=== PATIENT | female | born 1970 | race African-American/Black ===

== ENCOUNTER 2016-11-21 05:06 | Emergency (ER) | payer OTHER ==
--- NOTE | 2016-11-21 08:06 | ER Document Report ---
[id number] SEIZURE Mode of Arrival: Ambulatory Information source: Patient Notes: 46-year-old female history seizure disorder who is been on Depakote and Keppra presents with complaints of a seizure. Patient notes after a seizure she went to work and told her with that she had a seizure and a demanding a work note Patient notes this is a normal seizure for denies any other concerns denies any neurological deficits at all TRAVEL OUTSIDE OF THE [place] IN LAST 30 DAYS: No - HPI Onset: Just prior to arrival Onset/Duration: Sudden Quality of pain: No pain Severity: Mild Pain Level: Denies Associated symptoms: None Exacerbated by: Denies Relieved by: Denies Similar symptoms previously: No Recently seen / treated by doctor: No - Related Data Allergies/Adverse Reactions: venom-wasp [Wasp Venom] Allergy (Severe, Verified 07/14/16 14:11) SWELLING Bees Allergy (Severe, Uncoded 11/05/15 06:13) swelling Past Medical History - Social History Smoking Status: Never Smoker Chew tobacco use (# tins/day): No Frequency of alcohol use: None Drug Abuse: None Family History: DM Patient has suicidal ideation: No Patient has homicidal ideation: No - Past Medical History Cardiac Medical History: Reports: Hx Hypertension Pulmonary Medical History: Denies: Hx Tuberculosis Neurological Medical History: Reports: Hx Migraine, Hx Seizures Endocrine Medical History: Reports: Hx Diabetes Mellitus Type 2 Renal/ Medical History: Denies: Hx Peritoneal Dialysis Malignancy Medical History: Reports: Hx Pancreatic Cancer Psychiatric Medical History: Reports: Hx Schizophrenia Past Surgical History: Reports: Hx Tubal Ligation - Immunizations Hx Diphtheria, Pertussis, Tetanus Vaccination: Yes Hx Pneumococcal Vaccination: 10/19/00 Review of Systems - Review of Systems Notes: REVIEW OF SYSTEMS: CONSTITUTIONAL : Denies fever, chills, or sweats. Denies recent illness. EENT: Denies eye, ear, throat, or mouth pain or symptoms. Denies nasal or sinus congestion or discharge. Denies throat, tongue, or mouth swelling or difficulty swallowing. CARDIOVASCULAR: Denies chest pain. Denies palpitations or racing or irregular heart beat. Denies ankle edema. RESPIRATORY: Denies cough, cold, or chest congestion. Denies shortness of breath, difficulty breathing, or wheezing. GASTROINTESTINAL: Denies abdominal pain or distention. Denies nausea, vomiting , or diarrhea. Denies blood in vomitus, stools, or per rectum. Denies black, tarry stools. Denies constipation. GENITOURINARY: Denies difficulty urinating, painful urination, burning, frequency, blood in urine, or discharge. FEMALE GENITOURINARY: Denies vaginal bleeding, heavy or abnormal periods, irregular periods. Denies vaginal discharge or odor. MUSCULOSKELETAL: Denies back or neck pain or stiffness. Denies joint pain or swelling. SKIN: Denies rash, lesions or sores. HEMATOLOGIC : Denies easy bruising or bleeding. LYMPHATIC: Denies swollen, enlarged glands. NEUROLOGICAL: Admits to seizure PSYCHIATRIC: Denies anxiety or stress. Denies depression, suicidal ideation, or homicidal ideation. ALL OTHER SYSTEMS REVIEWED AND NEGATIVE. Dictation was performed using [employer] voice recognition software PHYSICAL EXAMINATION: GENERAL: Well-appearing, well-nourished and in no acute distress. HEAD: Atraumatic, normocephalic. EYES: Pupils equal round and reactive to light, extraocular movements intact, conjunctiva are normal. ENT: Nares patent, oropharynx clear without exudates. Moist mucous membranes. NECK: Normal range of motion, supple without lymphadenopathy LUNGS: Breath sounds clear to auscultation bilaterally and equal. No wheezes rales or rhonchi. HEART: Regular rate and rhythm without murmurs ABDOMEN: Soft, nontender, nondistended abdomen. No guarding, no rebound. No masses appreciated. Female : deferred Musculoskeletal: Normal range of motion, no pitting or edema. No cyanosis. NEUROLOGICAL: Cranial nerves grossly intact. Normal speech, normal gait. Normal sensory, motor exams PSYCH: Normal mood, normal affect. SKIN: Warm, Dry, normal turgor, no rashes or lesions noted. Physical Exam - Vital signs Vitals: Temp Pulse Resp BP Pulse Ox 97.9 F 76 12 129/79 H 100 11/21/16 05:11 11/21/16 05:11 11/21/16 05:11 11/21/16 05:11 11/21/16 05:11 Interpretation: Normal Course - Re-evaluation Re-evalutation: 11/21/16 08:05 Patient notes that the seizures exactly like her previous seizures denies any other concerns, states she's been taking her Depakote and Keppra as prescribed, and just requests a note for work. I will discharge her at this time at her request After performing a Medical Screening Examination, I estimate there is LOW risk for ACUTE GLAUCOMA, TEMPORAL ARTERITIS, MENINGITIS, INCRANIAL HEMORRHAGE, or ISCHEMIC STROKE thus I consider the discharge disposition reasonable. The patient and I have discussed the diagnosis and risks, and we agree with discharging home with close follow-up with the understanding that symptoms and presentations can change. We also discussed returning to the Emergency Department immediately if new or worsening symptoms occur. We have discussed the symptoms which are most concerning (e.g., changing or worsening symptoms, new numbness or weakness, vomiting, fever) that necessitate immediate return. 11/21/16 16:35 11/21/16 16:35 - Vital Signs Vital signs: Temp Pulse Resp BP Pulse Ox 97.8 F 78 16 108/69 97 11/21/16 08:12 11/21/16 08:12 11/21/16 08:12 11/21/16 08:12 11/21/16 08:12 Discharge - Discharge Clinical Impression: Seizure Condition: Stable Disposition: HOME, SELF-CARE Instructions: Seizure, Known Epileptic ([facility]) Forms: Return to Work Referrals: [facility] [Primary Care Provider] - Follow up tomorrow
[2016-11-21 08:16] VITALS: BP 108/69
== END 2016-11-21 08:12 | disposition home or self-care (01) ==
LOC: ER 05:06
DX: R56.9 Unspecified convulsions (principal)
CPT/HCPCS: 99283

== ENCOUNTER 2017-02-14 05:38 | Emergency (ER) | payer OTHER ==
[2017-02-14] MEDS ORDERED: LIDOCAINE 5% (700 MG) TRANSDERMAL ADH..PATCH TP ONE (07:49)
--- NOTE | 2017-02-14 07:52 | ER Document Report ---
ED General - General Chief Complaint: Neck Pain < 24hrs old Stated Complaint: NECK PAIN TRAVEL OUTSIDE OF THE [place] IN LAST 30 DAYS: No - HPI Patient complains to provider of: neck pain Notes: Patient coming in with posterior neck pain starting night prior to arrival. Patient denies any history trauma. Patient states recent started on new arthritis medication patient states to the green pill however does not know the name of it. Patient denies any fevers chills nausea vomiting. Patient states pain increases with movement of her head. Patient is lying flat upon my evaluation however is able to sit up turn her head left and right of the active range of motion is painful. Patient looks to be in no obvious distress. - Related Data Allergies/Adverse Reactions: venom-wasp [Wasp Venom] Allergy (Severe, Verified 07/14/16 14:11) SWELLING Bees Allergy (Severe, Uncoded 11/05/15 06:13) swelling Past Medical History - Social History Smoking Status: Unknown if Ever Smoked Family History: DM Patient has suicidal ideation: No Patient has homicidal ideation: No - Past Medical History Cardiac Medical History: Reports: Hx Hypertension Pulmonary Medical History: Denies: Hx Tuberculosis Neurological Medical History: Reports: Hx Migraine, Hx Seizures Endocrine Medical History: Reports: Hx Diabetes Mellitus Type 2 Renal/ Medical History: Denies: Hx Peritoneal Dialysis Malignancy Medical History: Reports: Hx Pancreatic Cancer Psychiatric Medical History: Reports: Hx Schizophrenia Past Surgical History: Reports: Hx Tubal Ligation - Immunizations Hx Diphtheria, Pertussis, Tetanus Vaccination: Yes Hx Pneumococcal Vaccination: 10/19/00 Review of Systems - Review of Systems Constitutional: No symptoms reported EENT: Other - Neck pain Cardiovascular: No symptoms reported Respiratory: No symptoms reported Gastrointestinal: No symptoms reported Genitourinary: No symptoms reported Female Genitourinary: No symptoms reported Musculoskeletal: No symptoms reported Skin: No symptoms reported Hematologic/Lymphatic: No symptoms reported Neurological/Psychological: No symptoms reported -: Yes All other systems reviewed and negative Physical Exam - Vital signs Vitals: Temp Pulse Resp BP Pulse Ox 97.7 F 76 18 134/88 H 99 02/14/17 05:43 02/14/17 05:43 02/14/17 05:43 02/14/17 05:43 02/14/17 05:43 Interpretation: Normal - General General appearance: Appears well, Alert - HEENT Head: Normocephalic, Atraumatic Eyes: Normal Conjunctiva: Normal Cornea: Normal Extraocular movements intact: Yes Pupils: PERRL Neck: Other - Patient with paraspinal tenderness bilaterally to palpation. Patient does have painful active range of motion is patient is wincing whenever she moves her neck around patient also winces when she had a goes passive range of motion. - Respiratory Respiratory status: No respiratory distress Chest status: Nontender Breath sounds: Normal Chest palpation: Normal - Cardiovascular Rhythm: Regular Heart sounds: Normal auscultation Murmur: No - Abdominal Inspection: Normal Distension: No distension Bowel sounds: Normal Tenderness: Nontender Organomegaly: No organomegaly - Back Back: Normal, Nontender - Extremities General upper extremity: Normal inspection, Nontender, Normal color, Normal ROM , Normal temperature General lower extremity: Normal inspection, Nontender, Normal color, Normal ROM , Normal temperature, Normal weight bearing. No: Angelika's sign - Neurological Neuro grossly intact: Yes Cognition: Normal Orientation: AAOx4 [place] Coma Scale Eye Opening: Spontaneous Melissa Coma Scale Verbal: Oriented Melissa Coma Scale Motor: Obeys Commands [place] Coma Scale Total: 15 Speech: Normal Motor strength normal: LUE, RUE, LLE, RLE Sensory: Normal - Psychological Associated symptoms: Normal affect, Normal mood - Skin Skin Temperature: Warm Skin Moisture: Dry Skin Color: Normal Course - Re-evaluation Re-evalutation: 02/14/17 08:01 Explained patient more likely has muscle skeletal cause of her neck pain. Patient is requesting a work note. Explained patient to continue with heat packs ice packs at home we will give the patient Lidoderm patch and patient there is [id number] option for Lidoderm patches patient requesting prescription. I did spend to the patient that the Lidoderm patches are expensive. Patient states understanding. No critical etiology seen on examination patient discharged home - Vital Signs Vital signs: Temp Pulse Resp BP Pulse Ox 97.7 F 76 18 134/88 H 99 02/14/17 05:43 02/14/17 05:43 02/14/17 05:43 02/14/17 05:43 02/14/17 05:43 Discharge - Discharge Clinical Impression: Neck pain Condition: Good Disposition: HOME, SELF-CARE Instructions: Muscle Strain ([facility]), Myalagia (Muscle Pain) ([facility]), Ice Packs ([facility] ), Warm Packs ([facility]) Additional Instructions: Examination is consistent with possible muscle strain or muscle spasm of her neck. Please continue to apply ice and heat. You may also use the patches provided. Follow-up with your primary care physician. The mass her pharmacist about [id number] lidocaine cream or patches. Prescriptions: Lidocaine [Lidoderm 5% (700 mg) Transdermal Patch] 1 patch TP DAILY #30 adh..patch Forms: Return to Work
[2017-02-14 08:10] VITALS: BP 128/98
== END 2017-02-14 08:15 | disposition home or self-care (01) ==
LOC: ER 05:38
DX: M54.2 Cervicalgia (principal)
CPT/HCPCS: 99283

== ENCOUNTER → 2017-05-25 | Outpatient (CLI) | payer OTHER ==
[2017-05-25 09:33] LABS: ABSOLUTE EOSINOPHILS # (AUTO) 0.1 10^3/uL (0.0-0.6); ABSOLUTE LYMPHOCYTES (AUTO) 1.9 10^3/uL (0.5-4.7); ABSOLUTE MONOCYTES (AUTO) 0.8 10^3/uL (0.1-1.4); ABSOLUTE NEUT (AUTO) 2.1 10^3/uL (1.7-8.2); BASOPHILS % (AUTO) 0.7 % (0-2); EOSINOPHILS % (AUTO) 2.9 % (0-6); LYMPHOCYTES % (AUTO) 37.8 % (13-45); MEAN CORPUSCULAR HEMOGLOBIN 29.2 pg (27.0-33.4); MEAN CORPUSCULAR HGB CONC 33.4 g/dL (32.0-36.0); MEAN CORPUSCULAR VOLUME 88 fl (80-97); MONOCYTES % (AUTO) 16.6 % (3-13); RED BLOOD COUNT 4.12 10^6/uL (3.72-5.28); RED CELL DISTRIBUTION WIDTH 13.1 % (11.5-14.0)
[2017-05-25 09:46] LABS: ALANINE AMINOTRANSFERASE 16 U/L (9-52); ALBUMIN 3.9 g/dL (3.5-5.0); ALKALINE PHOSPHATASE 48 U/L (38-126); ANION GAP 8 (5-19); ASPARTATE AMINO TRANSFERASE 14 U/L (14-36); BILIRUBIN,DIRECT 0.3 mg/dL (0.0-0.4); BILIRUBIN,TOTAL 0.4 mg/dL (0.2-1.3); BLOOD UREA NITROGEN 13 mg/dL (7-20); CALCIUM 9.1 mg/dL (8.4-10.2); CARBON DIOXIDE 30 mmol/L (22-30); CHLORIDE 102 mmol/L (98-107); CHOLESTEROL 179.77 mg/dL (0-200); CREATININE RESULT 0.93 mg/dL (0.52-1.25); Direct HDL 47 mg/dL (>40); GLUCOSE 105 mg/dL (75-110); POTASSIUM 4.5 mmol/L (3.6-5.0); SODIUM 140.1 mmol/L (137-145); TOTAL PROTEIN 7.6 g/dL (6.3-8.2); TRIGLYCERIDES 115 mg/dL (<150)
[2017-05-25 09:57] LABS: DIRECT LDL 114 mg/dL (<100); VALPROIC ACID 70.3 ug/mL (50.0-120.0)
== END ==
LOC: CCC 09:15
DX: G40.909 Epilepsy, unspecified, not intractable, without status epilepticus (principal); E11.9 Type 2 diabetes mellitus without complications
CPT/HCPCS: 36415; 80053; 80061; 80164; 80177; 83036; 84443; 85025

== ENCOUNTER 2017-10-20 10:42 | Emergency (ER) | payer OTHER ==
[2017-10-20] MEDS ORDERED: KETOROLAC TROMETHAMINE 60 MG/2 ML SDV IM ONE (11:19)
--- NOTE | 2017-10-20 11:20 | ER Document Report ---
ED Medical Screen (RME) - General Chief Complaint: Chest Pain > 30 Stated Complaint: CHEST PAIN Time Seen by Provider: 10/20/17 11:12 Notes: 47-year-old female with known psychiatric history was at work and had sudden onset of severe left anterior chest pain. The pain is made worse with movement and breathing. Exam shows the left anterior chest wall is exquisitely tender to palpate. She will be given a shot of Toradol and moved to the main side where she can lay down and relax. I have greeted and performed a rapid initial assessment of this patient. A comprehensive ED assessment and evaluation of the patient, analysis of test results and completion of the medical decision making process will be conducted by additional ED providers. TRAVEL OUTSIDE OF THE [place] IN LAST 30 DAYS: No - Related Data Allergies/Adverse Reactions: venom-wasp [Wasp Venom] Allergy (Severe, Verified 08/21/17 02:24) SWELLING Bees Allergy (Severe, Uncoded 11/05/15 06:13) swelling Past Medical History - Social History Chew tobacco use (# tins/day): No Frequency of alcohol use: None Drug Abuse: None - Past Medical History Cardiac Medical History: Reports: Hx Hypertension Pulmonary Medical History: Denies: Hx Tuberculosis Neurological Medical History: Reports: Hx Migraine, Hx Seizures Endocrine Medical History: Reports: Hx Diabetes Mellitus Type 2 Renal/ Medical History: Denies: Hx Peritoneal Dialysis Malignancy Medical History: Reports: Hx Pancreatic Cancer Psychiatric Medical History: Reports: Hx Depression, Hx Schizophrenia Past Surgical History: Reports: Hx Cholecystectomy, Hx Tubal Ligation - Immunizations Hx Diphtheria, Pertussis, Tetanus Vaccination: Yes Physical Exam - Vital signs Vitals: Temp Pulse Resp BP Pulse Ox 97.8 F 76 18 123/81 100 10/20/17 10:53 10/20/17 10:53 10/20/17 10:53 10/20/17 10:53 10/20/17 10:53 Course - Vital Signs Vital signs: Temp Pulse Resp BP Pulse Ox 97.8 F 76 18 123/81 100 10/20/17 10:53 10/20/17 10:53 10/20/17 10:53 10/20/17 10:53 10/20/17 10:53
--- NOTE | 2017-10-20 12:29 | ER Document Report ---
ED General - General Chief Complaint: Chest Pain > 30 Stated Complaint: CHEST PAIN Time Seen by Provider: 10/20/17 11:12 TRAVEL OUTSIDE OF THE [place] IN LAST 30 DAYS: No - HPI Patient complains to provider of: Chest wall pain Notes: Patient coming in for evaluation of chest wall pain. Patient states she was at work when she was having some drink when he developed pain left-sided chest left arm. Pain is exacerbated by palpation and movement of the left shoulder. Denies any recent travel denies fevers chills nausea vomiting diarrhea. Patient was given a dose of ketorolac in triage and EKG performed. Upon my evaluation patient sleeping easily arousable. Patient states her pain has improved after receiving the ketorolac. - Related Data Allergies/Adverse Reactions: venom-wasp [Wasp Venom] Allergy (Severe, Verified 08/21/17 02:24) SWELLING Bees Allergy (Severe, Uncoded 11/05/15 06:13) swelling Past Medical History - Social History Smoking Status: Never Smoker Chew tobacco use (# tins/day): No Frequency of alcohol use: None Drug Abuse: None Family History: DM Patient has suicidal ideation: No Patient has homicidal ideation: No - Past Medical History Cardiac Medical History: Reports: Hx Hypertension Pulmonary Medical History: Denies: Hx Tuberculosis Neurological Medical History: Reports: Hx Migraine, Hx Seizures Endocrine Medical History: Reports: Hx Diabetes Mellitus Type 2 Renal/ Medical History: Denies: Hx Peritoneal Dialysis Malignancy Medical History: Reports: Hx Pancreatic Cancer Psychiatric Medical History: Reports: Hx Depression, Hx Schizophrenia Past Surgical History: Reports: Hx Cholecystectomy, Hx Tubal Ligation - Immunizations Hx Diphtheria, Pertussis, Tetanus Vaccination: Yes Hx Pneumococcal Vaccination: 10/19/00 Review of Systems - Review of Systems Constitutional: No symptoms reported EENT: No symptoms reported Cardiovascular: Chest pain Respiratory: No symptoms reported Gastrointestinal: No symptoms reported Genitourinary: No symptoms reported Female Genitourinary: No symptoms reported Musculoskeletal: No symptoms reported Skin: No symptoms reported Hematologic/Lymphatic: No symptoms reported Neurological/Psychological: No symptoms reported -: Yes All other systems reviewed and negative Physical Exam - Vital signs Vitals: Temp Pulse Resp BP Pulse Ox 97.8 F 76 18 123/81 100 10/20/17 10:53 10/20/17 10:53 10/20/17 10:53 10/20/17 10:53 10/20/17 10:53 Interpretation: Normal - General General appearance: Appears well, Alert - HEENT Head: Normocephalic, Atraumatic Eyes: Normal Pupils: PERRL - Respiratory Respiratory status: No respiratory distress Chest status: Tender - Tenderness to palpation of the anterior chest wall the left side palpation of the clavicle region also reproduces tenderness palpation of the shoulder blade reproduces patient's tenderness moving the left shoulder reproduces the patient's pain and tenderness Breath sounds: Normal Chest palpation: Normal - Cardiovascular Rhythm: Regular Heart sounds: Normal auscultation Murmur: No - Abdominal Inspection: Normal Distension: No distension Bowel sounds: Normal Tenderness: Nontender Organomegaly: No organomegaly - Back Back: Normal, Nontender - Extremities General upper extremity: Normal inspection, Nontender, Normal color, Normal ROM , Normal temperature General lower extremity: Normal inspection, Nontender, Normal color, Normal ROM , Normal temperature, Normal weight bearing. No: Angelika's sign - Neurological Neuro grossly intact: Yes Cognition: Normal Orientation: AAOx4 Melissa Coma Scale Eye Opening: Spontaneous [place] Coma Scale Verbal: Oriented Melissa Coma Scale Motor: Obeys Commands Melissa Coma Scale Total: 15 Speech: Normal Motor strength normal: LUE, RUE, LLE, RLE Sensory: Normal - Psychological Associated symptoms: Normal affect, Normal mood - Skin Skin Temperature: Warm Skin Moisture: Dry Skin Color: Normal Course - Re-evaluation Re-evalutation: 10/20/17 15:11 Examinations clinically suspicious for chest wall pain. Her normal EKG. Patient otherwise looks to be pain-free at this time no further workup is needed. Patient will be discharged on follow-up primary care physician. - Vital Signs Vital signs: Temp Pulse Resp BP Pulse Ox 97.6 F 76 16 111/39 L 100 10/20/17 12:30 10/20/17 10:53 10/20/17 12:02 10/20/17 12:02 10/20/17 12:02 Discharge - Discharge Clinical Impression: Chest wall pain Condition: Good Disposition: HOME, SELF-CARE Instructions: Anti-Inflammatory Medication ([facility]), Chest Wall Pain ([facility]) Additional Instructions: Your evaluation today is consistent with chest wall pain. The muscle tissue and cartilage in her chest wall is inflamed causing her pain.Treatment for this is hydration Tylenol Motrin for pain control. I recommend follow-up with your primary care physician in 1-2 weeks. Return to ER symptoms worsen. Prescriptions: Ibuprofen [Motrin 600 Mg Tablet] 600 mg PO TID #30 tablet Forms: Return to Work
[2017-10-20 12:30] VITALS: BP 111/39
--- NOTE | 2017-10-21 10:29 | EKG REPORT ---
SEVERITY:- ABNORMAL ECG - SINUS RHYTHM PROBABLE LEFT VENTRICULAR HYPERTROPHY : Confirmed by: Demi Wan 21-Oct-2017 10:29:07
== END 2017-10-20 12:40 | disposition home or self-care (01) ==
LOC: ER 10:42
DX: R07.9 Chest pain, unspecified (principal); E11.9 Type 2 diabetes mellitus without complications; Z90.49 Acquired absence of other specified parts of digestive tract; Z98.51 Tubal ligation status
CPT/HCPCS: 93005; 99284; 96372; 93010; J1885

== ENCOUNTER 2017-11-08 06:47 | Emergency (ER) | payer OTHER ==
[2017-11-08] MEDS ORDERED: NORMAL SALINE 1000 ML 1,000 ML IV ONE (07:42)
[2017-11-08] MEDS ORDERED: KETOROLAC TROMETHAMINE INJ/PF 30 MG/1 ML SDV IV ONE (07:42)
[2017-11-08] MEDS ORDERED: LEVETIRACETAM 500 MG/NACL-ISO 500 MG/100 ML RTUPB IV ONE (07:42)
[2017-11-08] MEDS ORDERED: ONDANSETRON HCL INJ/PF 4 MG/2 ML SDV IV ONE (07:42)
--- NOTE | 2017-11-08 07:48 | ER Document Report ---
ED GI/ - General Chief Complaint: Nausea/Vomiting/Diarrhea Stated Complaint: CHEST PAIN,ABDOMINAL PAIN Time Seen by Provider: 11/08/17 07:33 Mode of Arrival: Ambulatory Information source: Patient Notes: Patient is a 47-year-old female with a history of seizures who presents to the ER today for 2-3 days of nausea, vomiting, diarrhea. Patient states the diarrhea started first and is watery. She denies any recent antibiotic use. Patient states that her has also had the same symptoms, but she has come today because she is concerned that she may have a seizure as she has not been able to take her Depakote or Keppra since yesterday morning due to the vomiting. She denies any blood in her diarrhea or vomit. She admits to chills and body aches but denies fever that she is known of. She denies any upper respiratory symptoms such as cough, congestion. She admits to abdominal pain and chest pain but only after multiple episodes of vomiting and diarrhea. She denies any cardiac history. TRAVEL OUTSIDE OF THE [place] IN LAST 30 DAYS: No - Related Data Allergies/Adverse Reactions: venom-wasp [Wasp Venom] Allergy (Severe, Verified 08/21/17 02:24) SWELLING Bees Allergy (Severe, Uncoded 11/05/15 06:13) swelling Past Medical History - General Information source: Patient - Social History Smoking Status: Unknown if Ever Smoked Family History: DM - Past Medical History Cardiac Medical History: Reports: Hx Hypertension Pulmonary Medical History: Denies: Hx Tuberculosis Neurological Medical History: Reports: Hx Migraine, Hx Seizures Endocrine Medical History: Reports: Hx Diabetes Mellitus Type 2 Renal/ Medical History: Denies: Hx Peritoneal Dialysis Malignancy Medical History: Reports: Hx Pancreatic Cancer Psychiatric Medical History: Reports: Hx Depression, Hx Schizophrenia Past Surgical History: Reports: Hx Cholecystectomy, Hx Tubal Ligation - Immunizations Hx Diphtheria, Pertussis, Tetanus Vaccination: Yes Hx Pneumococcal Vaccination: 10/19/00 Review of Systems - Review of Systems Constitutional: See HPI EENT: No symptoms reported Cardiovascular: No symptoms reported Respiratory: No symptoms reported Gastrointestinal: See HPI Genitourinary: No symptoms reported Female Genitourinary: No symptoms reported Musculoskeletal: No symptoms reported Skin: No symptoms reported Hematologic/Lymphatic: No symptoms reported Neurological/Psychological: See HPI Physical Exam - Vital signs Vitals: Temp Pulse Resp BP Pulse Ox 98.2 F 111 H 16 133/87 H 100 11/08/17 06:48 11/08/17 06:48 11/08/17 06:48 11/08/17 06:48 11/08/17 06:48 - Notes Notes: PHYSICAL EXAMINATION: GENERAL: Mildly ill-appearing, but in no acute distress. HEAD: Atraumatic, normocephalic. EYES: Pupils equal round and reactive to light, extraocular movements intact, sclera anicteric, conjunctiva are normal. NECK: Normal range of motion, supple without lymphadenopathy LUNGS: CTAB and equal. No wheezes rales or rhonchi. HEART: Chest nontender to palpation, regular rate and rhythm without murmurs ABDOMEN: Soft, mild diffuse tenderness. No guarding, no rebound BACK: no vertebral tenderness, normal ROM GI/: no CVA tenderness EXTREMITIES: Normal range of motion, no pitting edema. No cyanosis. NEUROLOGICAL: Cranial nerves grossly intact. Normal sensory/motor exams. PSYCH: Normal mood, normal affect. SKIN: Warm, Dry, normal turgor, no rashes or lesions noted Course - Re-evaluation Re-evalutation: 11/08/17 12:35 Lab work unremarkable today except for indeterminate troponin, another troponin was checked 3 hours after the first 1 and actually went down, but was about equal. Patient having no chest pain and has had no vomiting since being given Zofran. After IV fluids, her pulse is down to normal. Patient states that she feels "much better" would like to go home. I will send her home with Zofran. She also got a dose of her Keppra here and Depakote. She was able to keep down fluids and crackers. - Vital Signs Vital signs: Temp Pulse Resp BP Pulse Ox 99.5 F 111 H 17 115/75 98 11/08/17 10:14 11/08/17 06:48 11/08/17 11:01 11/08/17 11:01 11/08/17 11:01 - Laboratory Result Diagrams: 11/08/17 08:03 11/08/17 08:03 Laboratory results interpreted by me: 11/08/17 11/08/17 11/08/17 07:35 08:03 08:03 RDW 14.5 H Seg Neutrophils % 81.6 H Lymphocytes % 8.2 L Absolute Lymphocytes 0.4 L Glucose 117 H Urine Urobilinogen 2.0 H Discharge - Discharge Clinical Impression: Nausea vomiting and diarrhea Condition: Stable Disposition: HOME, SELF-CARE Instructions: Intravenous (IV) Fluids ([facility]), Vomiting ([facility]) Additional Instructions: Return immediately for any new or worsening symptoms. Follow up with primary care provider, call tomorrow to make followup appointment. Prescriptions: Ondansetron [Zofran Odt 4 mg Tablet] 1 - 2 tab PO Q4H PRN #30 tab.rapdis PRN Reason: For Nausea/Vomiting Forms: Return to Work
[2017-11-08 07:52] LABS: APPEARANCE,URINE SLIGHTLY-CLOUDY; BILIRUBIN,URINE NEGATIVE (NEGATIVE); COLOR,URINE YELLOW; GLUCOSE, URINE NEGATIVE (NEGATIVE); KETONES,URINE NEGATIVE (NEGATIVE); LEUKOCYTE ESTERASE,URINE NEGATIVE (NEGATIVE); NITRITE,URINE NEGATIVE (NEGATIVE); PROTEIN,URINE NEGATIVE (NEGATIVE); URINE SPECIFIC GRAVITY 1.018
--- NOTE | 2017-11-08 08:12 | RADIOLOGY REPORT (SQ) ---
EXAM DESCRIPTION: CHEST PA/LAT COMPLETED DATE/TIME: 11/08/2017 7:58 am REASON FOR STUDY: chest pain/ n/v COMPARISON: 03/20/2016 EXAM PARAMETERS: NUMBER OF VIEWS: two views TECHNIQUE: Digital Frontal and Lateral radiographic views of the chest acquired. RADIATION DOSE: NA LIMITATIONS: none FINDINGS: LUNGS AND PLEURA: No opacities, masses or pneumothorax. No pleural effusion. MEDIASTINUM AND HILAR STRUCTURES: No masses or contour abnormalities. HEART AND VASCULAR STRUCTURES: Heart normal size. No evidence for failure. BONES: No acute findings. HARDWARE: None in the chest. OTHER: No other significant finding. IMPRESSION: NO SIGNIFICANT RADIOGRAPHIC FINDING IN THE CHEST. TECHNICAL DOCUMENTATION: JOB ID: [id number] [employer]- All Rights Reserved
[2017-11-08 08:28] LABS: ABSOLUTE LYMPHOCYTES (AUTO) 0.4 10^3/uL (0.5-4.7); ABSOLUTE MONOCYTES (AUTO) 0.5 10^3/uL (0.1-1.4); BASOPHILS % (AUTO) 0.5 % (0-2); EOSINOPHILS % (AUTO) 0.4 % (0-6); HEMATOCRIT 38.8 % (36.0-47.0); LYMPHOCYTES % (AUTO) 8.2 % (13-45); MEAN CORPUSCULAR HEMOGLOBIN 29.2 pg (27.0-33.4); MEAN CORPUSCULAR HGB CONC 33.6 g/dL (32.0-36.0); MEAN CORPUSCULAR VOLUME 87 fl (80-97); MONOCYTES % (AUTO) 9.3 % (3-13); PLATELET COUNT 203 10^3/uL (150-450); RED BLOOD COUNT 4.47 10^6/uL (3.72-5.28); RED CELL DISTRIBUTION WIDTH 14.5 % (11.5-14.0); SEGMENTED NEUTROPHILS % (AUTO) 81.6 % (42-78); TOTAL CELLS COUNTED % (AUTO) 100 %; WHITE BLOOD COUNT 4.9 10^3/uL (4.0-10.5)
[2017-11-08 08:47] LABS: A TYPE INFLUENZA AG NEGATIVE (NEGATIVE); B INFLUENZA AG NEGATIVE (NEGATIVE)
[2017-11-08 08:47] LABS: ALANINE AMINOTRANSFERASE 29 U/L (9-52); ALBUMIN 4.2 g/dL (3.5-5.0); ALKALINE PHOSPHATASE 48 U/L (38-126); ANION GAP 9 (5-19); ASPARTATE AMINO TRANSFERASE 19 U/L (14-36); BILIRUBIN,DIRECT 0.2 mg/dL (0.0-0.4); BILIRUBIN,TOTAL 0.5 mg/dL (0.2-1.3); BLOOD UREA NITROGEN 13 mg/dL (7-20); CALCIUM 9.8 mg/dL (8.4-10.2); CARBON DIOXIDE 28 mmol/L (22-30); CHLORIDE 101 mmol/L (98-107); CREATINE KINASE 70 U/L (30-135); GLUCOSE 117 mg/dL (75-110); LIPASE 84.9 U/L (23-300); POTASSIUM 3.9 mmol/L (3.6-5.0); TOTAL PROTEIN 7.5 g/dL (6.3-8.2)
[2017-11-08 08:59] LABS: CREATINE KINASE MB < 0.22 ng/mL (<4.55)
[2017-11-08 09:02] LABS: TROPONIN I 0.042 ng/mL
[2017-11-08] MEDS ORDERED: DIVALPROEX SODIUM 500 MG TAB.SR.24H PO ONE (09:38)
[2017-11-08 12:43] VITALS: BP 114/82
--- NOTE | 2017-11-08 19:50 | EKG REPORT ---
SEVERITY:- ABNORMAL ECG - SINUS RHYTHM LEFT AXIS DEVIATION LEFT VENTRICULAR HYPERTROPHY ABNORMAL T, CONSIDER ISCHEMIA, LATERAL LEADS : Confirmed by: Demi Wan 08-Nov-2017 19:50:05
== END 2017-11-08 12:25 | disposition home or self-care (01) ==
LOC: ER 06:47
DX: R11.2 Nausea with vomiting, unspecified (principal); R19.7 Diarrhea, unspecified; R68.83 Chills (without fever); R10.9 Unspecified abdominal pain; R10.817 Generalized abdominal tenderness; R07.9 Chest pain, unspecified; I10 Essential (primary) hypertension; E11.9 Type 2 diabetes mellitus without complications; Z79.899 Other long term (current) drug therapy; Z91.038 Other insect allergy status; Z91.030 Bee allergy status; Z85.07 Personal history of malignant neoplasm of pancreas; Z90.49 Acquired absence of other specified parts of digestive tract
CPT/HCPCS: 93005; 99284; 96361; 96375; 96365; 36415; 82553; 82550; 83690; 85025; 81025; 80053; 81001; 84484; 87804; 71046; 93010; J1885; J2405; J7030; J1953

== ENCOUNTER 2017-12-24 10:35 | Emergency (ER) | payer OTHER ==
[2017-12-24 10:49] VITALS: BP 116/79
[2017-12-24] MEDS ORDERED: BENZONATATE 100 MG CAPSULE PO ONE (10:56)
--- NOTE | 2017-12-24 10:59 | ER Document Report ---
ED General - General Chief Complaint: Flu Symptoms Stated Complaint: CONGESTION Time Seen by Provider: 12/24/17 10:56 Notes: 47-year-old female here with complaints of dry cough congestion runny nose sore throat headaches body aches ongoing for the past few hours. Her family member is sick with similar symptoms. She has not taken anything for the symptoms. Eating drinking urinating defecating per usual. Immunizations up-to-date. TRAVEL OUTSIDE OF THE [place] IN LAST 30 DAYS: No - Related Data Allergies/Adverse Reactions: venom-wasp [Wasp Venom] Allergy (Severe, Verified 12/24/17 10:40) SWELLING Bees Allergy (Severe, Uncoded 12/24/17 10:40) swelling Past Medical History - Social History Smoking Status: Unknown if Ever Smoked Family History: DM Patient has suicidal ideation: No Patient has homicidal ideation: No - Past Medical History Cardiac Medical History: Reports: Hx Hypertension Pulmonary Medical History: Denies: Hx Tuberculosis Neurological Medical History: Reports: Hx Migraine, Hx Seizures Endocrine Medical History: Reports: Hx Diabetes Mellitus Type 2 Renal/ Medical History: Denies: Hx Peritoneal Dialysis Malignancy Medical History: Reports: Hx Pancreatic Cancer Psychiatric Medical History: Reports: Hx Depression, Hx Schizophrenia Past Surgical History: Reports: Hx Cholecystectomy, Hx Tubal Ligation - Immunizations Hx Diphtheria, Pertussis, Tetanus Vaccination: Yes Hx Pneumococcal Vaccination: 10/19/00 Review of Systems - Review of Systems Notes: See history of present illness for pertinent positive review of systems; otherwise all review of systems have been reviewed and are negative Physical Exam - Vital signs Vitals: Temp Pulse Resp BP Pulse Ox 98.7 F 104 H 18 116/79 98 12/24/17 10:47 12/24/17 10:47 12/24/17 10:47 12/24/17 10:47 12/24/17 10:47 - Notes Notes: PHYSICAL EXAMINATION: GENERAL: Well-appearing and in no acute distress. Patient seen coughing several times HEAD: Atraumatic, normocephalic. EYES: Pupils equal round and reactive to light, extraocular movements intact, sclera anicteric, conjunctiva are normal. ENT: nares patent, oropharynx minimal erythema without exudates. Moist mucous membranes. NECK: Normal range of motion, supple without lymphadenopathy LUNGS: CTAB and equal. No wheezes rales or rhonchi. HEART: Minimally tachycardic rate 102 or entheses likely due to coughing fits) and regular rhythm without murmurs ABDOMEN: Soft, no tenderness. No guarding, no rebound EXTREMITIES: Normal range of motion, no pitting edema. No cyanosis. NEUROLOGICAL: Cranial nerves grossly intact. Normal sensory/motor exams. PSYCH: Normal mood, normal affect. SKIN: Warm, Dry, normal turgor, no rashes or lesions noted Course - Re-evaluation Re-evalutation: 12/24/17 10:59 MEDICAL DECISION MAKING: Concern for upper respiratory infection, most likely viral Instructed patient on fever control with Tylenol and/or (if applicable) Motrin Also discussed keeping hydrated with water or Gatorade/Pedialyte Instructed follow-up PCP next day or few Patient understands and agrees to the plan of care - Vital Signs Vital signs: Temp Pulse Resp BP Pulse Ox 98.7 F 104 H 18 116/79 98 12/24/17 10:47 12/24/17 10:47 12/24/17 10:47 12/24/17 10:47 12/24/17 10:47 Discharge - Discharge Clinical Impression: Acute URI Condition: Good Disposition: HOME, SELF-CARE Additional Instructions: You were seen in the emergency department at [facility]. You likely have an upper respiratory infection, most likely viral. Use Motrin and/ or Tylenol for fever control. You may use saline nasal spray for stuffy nose. Stay hydrated. Please followup with your primary physician in the next few days for further management/evaluation. Please return to the emergency department for worsening of symptoms or any symptom that you deem to be concerning or life-threatening. Thank you for allowing us to be part of your care. This is your school/work note for your Emergency Department evaluation today. Prescriptions: Codeine Phosphate/Guaifenesin [Guaifen-Codeine 200-20 mg/10Ml] 10 ml PO Q6HP PRN #120 liquid PRN Reason: Benzonatate [Tessalon Perles 100 mg Capsule] 100 mg PO Q8HP PRN #40 capsule PRN Reason: Meloxicam 7.5 mg PO DAILY #7 tablet
== END 2017-12-24 11:15 | disposition home or self-care (01) ==
LOC: ER 10:35
DX: J06.9 Acute upper respiratory infection, unspecified (principal); R05 Cough; R00.0 Tachycardia, unspecified; R09.89 Other specified symptoms and signs involving the circulatory and respiratory systems; J02.9 Acute pharyngitis, unspecified; R51 Headache; I10 Essential (primary) hypertension; E11.9 Type 2 diabetes mellitus without complications; Z91.030 Bee allergy status; Z91.038 Other insect allergy status; Z85.07 Personal history of malignant neoplasm of pancreas
CPT/HCPCS: 99283

== ENCOUNTER → 2017-12-30 | Outpatient (CLI) | payer OTHER ==
--- NOTE | 2017-12-30 09:37 | WOMENS IMAGING REPORT ---
EXAM DESCRIPTION: BILAT SCREENING MAMMO W/CAD COMPLETED DATE/TIME: 12/30/2017 8:57 am REASON FOR STUDY: ROUTINE BILATERAL SCREENING;Z12.31 Z12.31 ENCNTR SCREEN MAMMOGRAM FOR MALIGNANT N EOPLASM OF SHIRA COMPARISON: None. TECHNIQUE: Standard craniocaudal and mediolateral oblique views of each breast recorded using L4 Mobile[employer] l acquisition. LIMITATIONS: None. FINDINGS: No masses, calcifications or architectural distortion. No areas of suspicion. Read with the assistance of CAD. .[facility] - R2 Cenova Version 1.3 .[facility] - R2 Cenova Version 1.3 .[facility] - R2 Cenova Version 2.4 .[facility] R2 Cenova Version 2.4 .[facility] - R2 Piercer Operator Version 9.2 IMPRESSION: NORMAL MAMMOGRAM. BIRADS 1. BREAST DENSITY: b. There are scattered areas of fibroglandular density. BIRAD: 1 NEGATIVE RECOMMENDATION: ROUTINE SCREENING COMMENT: The patient has been notified of the results by letter per SA requirements. Additional no tification policies are in place for contacting patient with suspicious or incomplete findings. Quality ID #[id number]: The [employer] recommends an annual screening mammogram for women aged 40 years or over. This facility utilizes a reminder system to ensure that all patients receive reminder letters, and/or direct phone calls for appointments. This includes reminders for routine scr eening mammograms, diagnostic mammograms, or other Breast Imaging Interventions when appropriate. Th is patient will be placed in the appropriate reminder system. The [employer] (A[employer]) has developed recommendations for screening MRI of the breast s in certain patient populations, to be used in conjunction with mammography. Breast MRI surveillanc e may be appropriate for women with more than 20% lifetime risk of developing breast cancer as deter mined by genetic testing, significant family history of the disease, or history of mantle radiation f or Hodgkins Disease. ACR Practice Guidelines 2008. TECHNICAL DOCUMENTATION: FINDING NUMBER: (1) ASSESSMENT: (1) JOB ID: [id number] [email or web address]- All Rights Reserved Reading location - IP/workstation name: [facility]
== END ==
LOC: WI 08:11
DX: Z12.31 Encounter for screening mammogram for malignant neoplasm of breast (principal)
CPT/HCPCS: 77067

== ENCOUNTER 2018-01-05 08:00 | Emergency (ER) | payer OTHER ==
[2018-01-05] MEDS ORDERED: NORMAL SALINE 1000 ML 1,000 ML IV ONE ×2 (08:36→11:08)
[2018-01-05] MEDS ORDERED: ONDANSETRON HCL INJ/PF 4 MG/2 ML SDV IV ONE (08:36)
--- NOTE | 2018-01-05 08:41 | ER Document Report ---
ED General - General Chief Complaint: Nausea/Vomiting/Diarrhea Stated Complaint: STOMACH PAIN, DIARRHEA, VOMITING Time Seen by Provider: 01/05/18 08:10 Mode of Arrival: Ambulatory Information source: Patient, Relative - TRAVEL OUTSIDE OF THE [place] IN LAST 30 DAYS: No - HPI Notes: 47-year-old female with a history of seizures presents today with sudden onset nausea vomiting, loose stool with generalized abdominal pain 2 hours ago. Patient states that she went to work at [employer] at [employer], her coworker came in with nausea vomiting and diarrhea, an hour later she felt similar symptoms. Patient states that she took her Depakote 500mg and her Keppra 500mg at 0530, vomiting up at 0600. Patient states she has vomited 4 times, stool twice. Patient reports she has a rash on her back that has been there for 1 week. Denies fevers, chills, chest pain,palpitations, shortness of breath, dyspnea, hematuria,blurred vision, double vision, loss of vision, speech changes, LH, dizziness, syncope, headaches, wheezing, ST, URI, neck pain, weakness, bowel or bladder dysfunction, saddle anesthesia, numbness or tingling in bilateral upper or lower extremities equally, muscle paralysis, weakness in bilateral upper or lower extremities equally or rash. Denies IV drug use. - Related Data Allergies/Adverse Reactions: venom-wasp [Wasp Venom] Allergy (Severe, Verified 01/05/18 08:03) SWELLING Bees Allergy (Severe, Uncoded 12/24/17 10:40) swelling Past Medical History - General Information source: Patient, Parent - - Social History Smoking Status: Never Smoker Chew tobacco use (# tins/day): No Frequency of alcohol use: None Drug Abuse: None Family History: DM Patient has suicidal ideation: No Patient has homicidal ideation: No - Past Medical History Cardiac Medical History: Reports: Hx Hypertension Pulmonary Medical History: Denies: Hx Tuberculosis Neurological Medical History: Reports: Hx Migraine, Hx Seizures Endocrine Medical History: Reports: Hx Diabetes Mellitus Type 2 Renal/ Medical History: Denies: Hx Peritoneal Dialysis Malignancy Medical History: Reports: Hx Pancreatic Cancer Psychiatric Medical History: Reports: Hx Depression, Hx Schizophrenia Past Surgical History: Reports: Hx Cholecystectomy, Hx Tubal Ligation - Immunizations Hx Diphtheria, Pertussis, Tetanus Vaccination: Yes Hx Pneumococcal Vaccination: 10/19/00 Review of Systems - Review of Systems Notes: REVIEW OF SYSTEMS: CONSTITUTIONAL : Denies fever, chills, or sweats. Denies recent illness. EENT: Denies eye, ear, throat, or mouth pain or symptoms. Denies nasal or sinus congestion or discharge. Denies throat, tongue, or mouth swelling or difficulty swallowing. CARDIOVASCULAR: Denies chest pain. Denies palpitations or racing or irregular heart beat. Denies ankle edema. RESPIRATORY: Denies cough, cold, or chest congestion. Denies shortness of breath, difficulty breathing, or wheezing. GASTROINTESTINAL: +n/v/d and generalized abdominal pain. Denies abdominal distension. Denies blood in vomitus, stools, or per rectum. Denies black, tarry stools. Denies constipation. GENITOURINARY: Denies difficulty urinating, painful urination, burning, frequency, blood in urine, or discharge. FEMALE GENITOURINARY: Denies vaginal bleeding, heavy or abnormal periods, irregular periods. Denies vaginal discharge or odor. MUSCULOSKELETAL: Denies back or neck pain or stiffness. Denies joint pain or swelling. SKIN: Denies rash, lesions or sores. HEMATOLOGIC : Denies easy bruising or bleeding. LYMPHATIC: Denies swollen, enlarged glands. NEUROLOGICAL: Denies confusion or altered mental status. Denies passing out or loss of consciousness. Denies dizziness or lightheadedness. Denies headache. Denies weakness or paralysis or loss of use of either side. Denies problems with gait or speech. Denies sensory loss, numbness, or tingling. Denies seizures. PSYCHIATRIC: Denies anxiety or stress. Denies depression, suicidal ideation, or homicidal ideation. ALL OTHER SYSTEMS REVIEWED AND NEGATIVE. PHYSICAL EXAMINATION: GENERAL: Well-appearing, well-nourished and in no acute distress. HEAD: Atraumatic, normocephalic. EYES: Pupils equal round and reactive to light, extraocular movements intact, conjunctiva are normal. ENT: Nares patent, oropharynx clear without exudates. Moist mucous membranes. NECK: Normal range of motion, supple without lymphadenopathy LUNGS: Breath sounds clear to auscultation bilaterally and equal. No wheezes rales or rhonchi. HEART: Regular rate and rhythm without murmurs ABDOMEN: Soft, nondistended abdomen. Generalized tenderness in all quadrants. Bowel sounds heard in all quadrants. No guarding, no rebound. No masses appreciated.No CVA tenderness bilaterally. Female : deferred Musculoskeletal: Normal range of motion, no pitting or edema. No cyanosis. NEUROLOGICAL: Cranial nerves grossly intact. Normal speech, normal gait. Normal sensory, motor exams PSYCH: Normal mood, normal affect. SKIN: Warm, Dry, normal turgor, no rashes or lesions noted. Dictation was performed using [employer] voice recognition software Physical Exam - Vital signs Vitals: Temp Pulse Resp BP Pulse Ox 97.6 F 87 18 131/93 H 100 01/05/18 08:04 01/05/18 08:04 01/05/18 08:04 01/05/18 08:04 01/05/18 08:04 Course - Re-evaluation Re-evalutation: Healthy 47-year-old female presents today with nausea vomiting and diarrhea of sudden onset, after 2 bags of IV fluids, Zofran and Compazine, patient states that she feels better. Patient states that she picked up her medication roughly an hour after she had taken it for an hour prior. Patient states she feels much better after fluids. She likely has a GI gastroenteritis that she caught from her coworker had similar symptoms from what she reports. CBC negative for any leukocytosis or anemia, CMP negative for any renal failure, liver failure and electrolyte disturbances. Advised patient to follow a bland diet, take Zofran as prescribed, increase hydration with Pedialyte. He verbalized understanding of these instructions and agree with plan of care. Patient was discharged home without incident. - Vital Signs Vital signs: Temp Pulse Resp BP Pulse Ox 98.6 F 95 18 133/81 H 100 01/05/18 13:19 01/05/18 13:19 01/05/18 13:19 01/05/18 13:19 01/05/18 13:19 - Laboratory Result Diagrams: 01/05/18 09:05 01/05/18 09:05 Laboratory results interpreted by me: 01/05/18 09:05 RDW 14.2 H Monocytes % 14.2 H Discharge - Discharge Clinical Impression: Gastroenteritis Condition: Good Disposition: HOME, SELF-CARE Instructions: Antinausea Medication ([facility]), Clear Liquid Diet ([facility]), Gastroenteritis (adult) ([facility]), Vomiting ([facility]) Additional Instructions: Gastroenteritis You most likely have gastroenteritis. This is an irritation of the stomach and intestinal tract. It's usually caused by a virus, but can also be caused by bacteria, toxins that cause food poisoning, or excessive alcohol intake. Symptoms may include fever, painful abdominal cramps, nausea, vomiting , and diarrhea. Start with small amounts (two to six ounces) of clear liquids (soft drinks , herb teas, broth, etc). Try to take fluids frequently even if you are vomiting, to prevent dehydration. When liquids are being consumed successfully , advance to small amounts of bland food (mashed potato, toast) for 6 - 12 hours. Gastroenteritis rarely requires medication. It goes away by itself. Use good handwashing so you don't spread germs. Wash underwear in very hot water. If symptoms are severe, talk to the doctor. Call your physician if blood appears in your vomitus or stool, if vomiting lasts longer than 24 hours, if the abdominal pain worsens or becomes localized to one area, or if you develop high fever. Increase oral hydration, take Zofran as directed. Pedialyte to help rehydrate. Follow a bland diet such as rice, bananas. If symptoms become worse return to the emergency room as soon as possible. Return immediately for any new or worsening symptoms. Follow up with primary care provider, call tomorrow to make followup appointment. Prescriptions: Ondansetron [Zofran Odt 4 mg Tablet] 1 - 2 tab PO Q4H PRN #15 tab.rapdis PRN Reason: For Nausea/Vomiting Forms: Return to Work Referrals: KEN MARIN MD [ACTIVE STAFF] - Follow up as needed
[2018-01-05 09:14] LABS: ABSOLUTE EOSINOPHILS # (AUTO) 0.1 10^3/uL (0.0-0.6); ABSOLUTE MONOCYTES (AUTO) 0.7 10^3/uL (0.1-1.4); ABSOLUTE NEUT (AUTO) 3.3 10^3/uL (1.7-8.2); BASOPHILS % (AUTO) 0.3 % (0-2); HEMATOCRIT 37.1 % (36.0-47.0); HEMOGLOBIN 12.4 g/dL (12.0-15.5); LYMPHOCYTES % (AUTO) 20.4 % (13-45); MEAN CORPUSCULAR HEMOGLOBIN 29.1 pg (27.0-33.4); MEAN CORPUSCULAR HGB CONC 33.3 g/dL (32.0-36.0); MEAN CORPUSCULAR VOLUME 87 fl (80-97); MONOCYTES % (AUTO) 14.2 % (3-13); PLATELET COUNT 244 10^3/uL (150-450); RED BLOOD COUNT 4.25 10^6/uL (3.72-5.28); RED CELL DISTRIBUTION WIDTH 14.2 % (11.5-14.0); SEGMENTED NEUTROPHILS % (AUTO) 64.1 % (42-78); TOTAL CELLS COUNTED % (AUTO) 100 %; WHITE BLOOD COUNT 5.1 10^3/uL (4.0-10.5)
[2018-01-05 09:33] LABS: ALANINE AMINOTRANSFERASE 20 U/L (9-52); ALKALINE PHOSPHATASE 48 U/L (38-126); ANION GAP 10 (5-19); ASPARTATE AMINO TRANSFERASE 17 U/L (14-36); BILIRUBIN,DIRECT 0.3 mg/dL (0.0-0.4); BILIRUBIN,TOTAL 0.3 mg/dL (0.2-1.3); BLOOD UREA NITROGEN 14 mg/dL (7-20); CARBON DIOXIDE 28 mmol/L (22-30); CHLORIDE 103 mmol/L (98-107); GLUCOSE 97 mg/dL (75-110); POTASSIUM 4.3 mmol/L (3.6-5.0); SODIUM 141.4 mmol/L (137-145); TOTAL PROTEIN 7.4 g/dL (6.3-8.2)
[2018-01-05] MEDS ORDERED: PROCHLORPERAZINE EDISYLATE INJ 10 MG/2 ML VIAL IV ONE (10:16)
[2018-01-05] MEDS ORDERED: DIVALPROEX SODIUM 125 MG CAP.SPRINK PO ONE (11:09)
[2018-01-05] MEDS ORDERED: LEVETIRACETAM 500 MG TABLET PO ONE (11:10)
[2018-01-05 13:19] VITALS: BP 133/81
== END 2018-01-05 13:19 | disposition home or self-care (01) ==
LOC: ER 08:00
DX: K52.9 Noninfective gastroenteritis and colitis, unspecified (principal); R11.2 Nausea with vomiting, unspecified; R10.84 Generalized abdominal pain; R56.9 Unspecified convulsions; E11.9 Type 2 diabetes mellitus without complications; I10 Essential (primary) hypertension; Z79.899 Other long term (current) drug therapy; Z91.030 Bee allergy status; Z91.038 Other insect allergy status; Z85.07 Personal history of malignant neoplasm of pancreas; Z90.49 Acquired absence of other specified parts of digestive tract
CPT/HCPCS: 99284; 96361; 96374; 96375; 36415; 83690; 85025; 80053; J0780; J2405; J3490; J7030

== ENCOUNTER 2018-02-16 14:49 | Emergency (ER) | payer OTHER ==
[2018-02-16 14:55] VITALS: BP 129/80
--- NOTE | 2018-02-16 15:27 | ER Document Report ---
ED Extremity Problem, Lower - General Chief Complaint: Feet Swelling Stated Complaint: FEET AND ANKLE SWELLING, PAIN Time Seen by Provider: 02/16/18 15:20 Notes: Patient is a 47-year-old female, past medical history hypertension, seizures, presents with 1 week of increased swelling around bilateral ankles worse at the end of the day. She works at [employer] and is on her feet all day long. Swelling improves when she elevates her legs. She watches her salt intake because this helps with her seizures. She denies calf pain or tenderness, numbness, tingling, injury, OCP use or history of DVTs. TRAVEL OUTSIDE OF THE [place] IN LAST 30 DAYS: No - Related Data Allergies/Adverse Reactions: venom-wasp [Wasp Venom] Allergy (Severe, Verified 02/16/18 14:50) SWELLING Bees Allergy (Severe, Uncoded 12/24/17 10:40) swelling Past Medical History - General Information source: Patient - Social History Smoking Status: Unknown if Ever Smoked Family History: DM - Past Medical History Cardiac Medical History: Reports: Hx Hypertension Pulmonary Medical History: Denies: Hx Tuberculosis Neurological Medical History: Reports: Hx Migraine, Hx Seizures Endocrine Medical History: Reports: Hx Diabetes Mellitus Type 2 Renal/ Medical History: Denies: Hx Peritoneal Dialysis Malignancy Medical History: Reports: Hx Pancreatic Cancer Psychiatric Medical History: Reports: Hx Depression, Hx Schizophrenia Past Surgical History: Reports: Hx Cholecystectomy, Hx Tubal Ligation - Immunizations Hx Diphtheria, Pertussis, Tetanus Vaccination: Yes Hx Pneumococcal Vaccination: 10/19/00 Review of Systems - Review of Systems Notes: REVIEW OF SYSTEMS: CONSTITUTIONAL: -fevers, -chills EENT: -eye pain, -difficulty swallowing, -nasal congestion CARDIOVASCULAR: -chest pain, -syncope. RESPIRATORY: -cough, -SOB GASTROINTESTINAL: -abdominal pain, -nausea, -vomiting, -diarrhea GENITOURINARY: -dysuria, -hematuria MUSCULOSKELETAL: +B/L ankle swelling, -back pain, -neck pain SKIN: -rash or skin lesions. HEMATOLOGIC: -easy bruising or bleeding. LYMPHATIC: -swollen, enlarged glands. NEUROLOGICAL: -altered mental status or loss of consciousness, -headache, - neurologic symptoms PSYCHIATRIC: -anxiety, -depression. ALL OTHER SYSTEMS REVIEWED AND NEGATIVE. Physical Exam - Vital signs Vitals: Temp Pulse Resp BP Pulse Ox 98.3 F 92 16 129/80 H 96 0501/18 14:54 02/16/18 14:54 02/16/18 14:54 02/16/18 14:54 02/16/18 14:54 - Notes Notes: PHYSICAL EXAMINATION: GENERAL: Well-appearing, well-nourished and in no acute distress. HEAD: Atraumatic, normocephalic. EYES: Pupils equal round and reactive to light, extraocular movements intact, sclera anicteric, conjunctiva are normal. ENT: nares patent, oropharynx clear without exudates. Moist mucous membranes. NECK: Normal range of motion, supple without lymphadenopathy LUNGS: Breath sounds clear to auscultation bilaterally and equal. No wheezes rales or rhonchi. HEART: Regular rate and rhythm without murmurs ABDOMEN: Soft, nontender, normoactive bowel sounds. No guarding, no rebound. No masses appreciated. EXTREMITIES: 1+ edema around B/L ankles, non-tender calves and no swelling of calves. Strong distal pulses. NEUROLOGICAL: Cranial nerves grossly intact. Normal speech, normal gait. Normal sensory and motor exams. PSYCH: Normal mood, normal affect. SKIN: Warm, Dry, normal turgor, no rashes or lesions noted. Course - Re-evaluation Re-evalutation: Pt with 1 week of dependent edema around her ankles. Electrolytes are normal and bedside ultrasound does not show any evidence of DVTs. Instructed her about using compression stockings and keeping her legs elevated as much as possible. She will follow-up with her primary care physician. - Vital Signs Vital signs: Temp Pulse Resp BP Pulse Ox 98.3 F 92 16 129/80 H 96 02/16/18 14:54 02/16/18 14:54 02/16/18 14:54 02/16/18 14:54 02/16/18 14:54 - Laboratory Result Diagrams: 02/16/18 15:33 02/16/18 15:33 Laboratory results interpreted by me: 02/16/18 02/16/18 15:33 15:33 RDW 14.1 H Carbon Dioxide 32 H Glucose 126 H Discharge - Discharge Clinical Impression: Mild peripheral edema Condition: Stable Disposition: HOME, SELF-CARE Additional Instructions: Edema, Peripheral You have swelling in your legs. This is called peripheral edema. It can be caused by "leaky capillaries," inflammation, disease of the leg veins, or excess salt and water in your body. Edema may be a sign of heart, kidney, or liver disease. A medical evaluation can determine if there is a serious underlying cause for your edema. Avoid prolonged standing. If you must sit for a long time, occasionally get up and walk around or elevate your legs. Support stockings can be helpful in limiting swelling. Often diuretic or water pills are used to remove excess salt and water from your body. Call the doctor or return if you develop increased swelling, pain, or redness, shortness of breath, chest pain, or any other significant change. Forms: Elevated Blood Pressure, Return to Work Referrals: [facility] [Primary Care Provider] - Follow up as needed
[2018-02-16 15:47] LABS: ABSOLUTE EOSINOPHILS # (AUTO) 0.1 10^3/uL (0.0-0.6); ABSOLUTE MONOCYTES (AUTO) 0.6 10^3/uL (0.1-1.4); BASOPHILS % (AUTO) 0.8 % (0-2); EOSINOPHILS % (AUTO) 2.2 % (0-6); HEMOGLOBIN 12.1 g/dL (12.0-15.5); LYMPHOCYTES % (AUTO) 41.7 % (13-45); MEAN CORPUSCULAR HEMOGLOBIN 29.4 pg (27.0-33.4); MEAN CORPUSCULAR HGB CONC 33.6 g/dL (32.0-36.0); MEAN CORPUSCULAR VOLUME 88 fl (80-97); MONOCYTES % (AUTO) 12.3 % (3-13); PLATELET COUNT 265 10^3/uL (150-450); RED BLOOD COUNT 4.11 10^6/uL (3.72-5.28); RED CELL DISTRIBUTION WIDTH 14.1 % (11.5-14.0); TOTAL CELLS COUNTED % (AUTO) 100 %; WHITE BLOOD COUNT 4.7 10^3/uL (4.0-10.5)
[2018-02-16 16:01] LABS: ALANINE AMINOTRANSFERASE 17 U/L (9-52); ALBUMIN 4.1 g/dL (3.5-5.0); ALKALINE PHOSPHATASE 49 U/L (38-126); ANION GAP 12 (5-19); ASPARTATE AMINO TRANSFERASE 16 U/L (14-36); BILIRUBIN,DIRECT 0.2 mg/dL (0.0-0.4); BILIRUBIN,TOTAL 0.2 mg/dL (0.2-1.3); BLOOD UREA NITROGEN 15 mg/dL (7-20); CALCIUM 9.9 mg/dL (8.4-10.2); CARBON DIOXIDE 32 mmol/L (22-30); CHLORIDE 99 mmol/L (98-107); GLUCOSE 126 mg/dL (75-110); SODIUM 142.6 mmol/L (137-145); TOTAL PROTEIN 7.5 g/dL (6.3-8.2)
== END 2018-02-16 16:39 | disposition home or self-care (01) ==
LOC: ER 14:49
DX: R60.0 Localized edema (principal); I10 Essential (primary) hypertension; E11.9 Type 2 diabetes mellitus without complications; Z91.038 Other insect allergy status; Z91.030 Bee allergy status; Z85.07 Personal history of malignant neoplasm of pancreas
CPT/HCPCS: 36415; 80053; 83880; 85025; 99284

== ENCOUNTER → 2018-02-25 | Outpatient (CLI) | payer MEDICAID, OTHER | LOC: CCC 11:36 | DX: N93.9 Abnormal uterine and vaginal bleeding, unspecified (principal) | CPT/HCPCS: 36415; 83001; 83002 ==

== ENCOUNTER 2018-02-26 10:30 | Emergency (ER) | payer SELFPAY ==
--- NOTE | 2018-02-26 11:28 | ER Document Report ---
ED General - General Chief Complaint: Back Pain Stated Complaint: LOWER BACK PAIN Time Seen by Provider: 02/26/18 11:03 Mode of Arrival: Ambulatory Information source: Patient Notes: 47-year-old female presented ED for complaint of leg swelling bilaterally with pain and back pain has increased this morning since she has been a work. She states she has seen a provider in the ED as well as her provider care in community clinic and they suggested compression stockings which she has bought and the pain is not getting any better. We have discussed her medications of Depakote and Keppra with her taken ibuprofen when she has a diagnosis of diabetes high blood pressure and seizures. TRAVEL OUTSIDE OF THE [place] IN LAST 30 DAYS: No - HPI Onset: Other - Chronic Onset/Duration: Gradual, Intermittent Quality of pain: Achy, Burning Severity: Moderate Pain Level: 4 Associated symptoms: Leg swelling - Bilateral leg pain and swelling fronts and sides of the legs bilateral pedal edema Exacerbated by: Standing, Walking Relieved by: Supine, Sitting Similar symptoms previously: Yes Recently seen / treated by doctor: Yes - Related Data Allergies/Adverse Reactions: venom-wasp [Wasp Venom] Allergy (Severe, Verified 02/26/18 10:32) SWELLING Bees Allergy (Severe, Uncoded 12/24/17 10:40) swelling Past Medical History - General Information source: Patient - Social History Smoking Status: Never Smoker Cigarette use (# per day): No Chew tobacco use (# tins/day): No Smoking Education Provided: No Frequency of alcohol use: None Drug Abuse: None Lives with: Family Family History: DM Patient has suicidal ideation: No Patient has homicidal ideation: No - Past Medical History Cardiac Medical History: Reports: Hx Hypertension Neurological Medical History: Reports: Hx Migraine, Hx Seizures Endocrine Medical History: Reports: Hx Diabetes Mellitus Type 2 Renal/ Medical History: Reports: None Malignancy Medical History: Reports: Hx Pancreatic Cancer GI Medical History: Reports: None Musculoskeltal Medical History: Reports Hx Arthritis Skin Medical History: Reports None Psychiatric Medical History: Reports: Hx Anxiety, Hx Depression, Hx Schizophrenia Traumatic Medical History: Reports: None Infectious Medical History: Reports: None Past Surgical History: Reports: Hx Cholecystectomy, Hx Tubal Ligation - Immunizations Hx Diphtheria, Pertussis, Tetanus Vaccination: Yes Hx Pneumococcal Vaccination: 10/19/00 Review of Systems - Review of Systems Constitutional: No symptoms reported EENT: No symptoms reported Cardiovascular: No symptoms reported Respiratory: No symptoms reported Gastrointestinal: No symptoms reported Genitourinary: No symptoms reported Female Genitourinary: No symptoms reported Musculoskeletal: Back pain, Leg swelling, Ankle swelling, Other - Bilateral leg ankle and feet pain and swelling Skin: No symptoms reported Hematologic/Lymphatic: No symptoms reported Neurological/Psychological: No symptoms reported -: Yes All other systems reviewed and negative Physical Exam - Vital signs Vitals: Temp Pulse Resp BP Pulse Ox 97.7 F 84 20 118/86 H 100 02/26/18 10:45 02/26/18 10:45 02/26/18 10:45 02/26/18 10:45 02/26/18 10:45 Interpretation: Normal - General General appearance: Appears well, Alert - HEENT Head: Normocephalic, Atraumatic Eyes: Normal Pupils: PERRL - Respiratory Respiratory status: No respiratory distress Chest status: Nontender Breath sounds: Normal Chest palpation: Normal - Cardiovascular Rhythm: Regular Heart sounds: Normal auscultation Murmur: No - Abdominal Inspection: Normal Distension: No distension Bowel sounds: Normal Tenderness: Nontender Organomegaly: No organomegaly - Back Back: Normal, Nontender - Extremities General upper extremity: Normal inspection, Nontender, Normal color, Normal ROM , Normal temperature General lower extremity: Normal inspection, Tender, Edema, Normal ROM, Normal weight bearing Thigh: Tender, Other - Swelling Knee: Tender, Other - Swelling. No: Abrasion, Deformity, Dislocation, Drawer's test instability, Ecchymosis, Instability, Joint effusion, Laceration, Laxity with valgus stress, Laxity with varus stress, Pain with ROM, Patellar tendon intact, Popliteal fossa tender, Tender joint line, Unable to bear weight Calf: Tender - Edema, Other. No: Abrasion, Deformity, Ecchymosis, Instability, Laceration, Unable to bear weight Ankle: Tender, Edema. No: Abrasion, Deformity, Ecchymosis, Limited ROM, Positive Biswas's test, Unable to bear weight Foot: Tender, Edema. No: Abrasion, Deformity, Ecchymosis, Metatarsal compress. pain, Navicular tenderness, No evidence of FB, Puncture wound, Tender 5th metatarsal, Unable to bear weight - Neurological Neuro grossly intact: Yes Cognition: Normal Orientation: AAOx4 Melissa Coma Scale Eye Opening: Spontaneous Melissa Coma Scale Verbal: Oriented Melissa Coma Scale Motor: Obeys Commands Melissa Coma Scale Total: 15 Speech: Normal Motor strength normal: LUE, RUE, LLE, RLE Sensory: Normal - Psychological Associated symptoms: Normal affect, Normal mood - Skin Skin Temperature: Warm Skin Moisture: Dry Skin Color: Normal Course - Re-evaluation Re-evalutation: 02/26/18 12:35 Patient has a history of bilateral leg ankle and feet swelling and pain. She has been to the ER and to her primary doctor at [facility]. She states she stands on her feet for 8 hours a day. She also takes 800 mg ibuprofen regularly for pain. She is on Depakote and Keppra for her seizures she is also diabetic and has high blood pressure. I have encouraged her to follow-up with her primary doctor again and to get off the ibuprofen which is increasing her swelling. 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 - Vital Signs Vital signs: Temp Pulse Resp BP Pulse Ox 97.7 F 75 18 134/89 H 99 02/26/18 11:33 02/26/18 11:33 02/26/18 11:33 02/26/18 11:33 02/26/18 11:33 Discharge - Discharge Clinical Impression: Dependent edema, Leg pain, bilateral Condition: Stable Disposition: HOME, SELF-CARE Additional Instructions: Leg Pain, Nonspecific We did not find an obvious cause for your leg pain. There's no sign of blood clot, infection, or other serious disease. Possible causes of vague leg pain include muscle or joint inflammation, disc disease in the lower back, pressure on the nerves in the back, or reduced blood flow through the arteries of the leg. Rest the leg. Pain can be eased with an antiinflammatory pain medicine such as ibuprofen. If the pain involves a small area, a heating pad might help. Call the doctor or return if the leg becomes swollen, weak, discolored, or increasingly painful, or if you develop any other significant change in your health. Edema, Peripheral You have swelling in your legs. This is called peripheral edema. It can be caused by "leaky capillaries," inflammation, disease of the leg veins, or excess salt and water in your body. Edema may be a sign of heart, kidney, or liver disease. A medical evaluation can determine if there is a serious underlying cause for your edema. Avoid prolonged standing. If you must sit for a long time, occasionally get up and walk around or elevate your legs. Support stockings can be helpful in limiting swelling. Often diuretic or water pills are used to remove excess salt and water from your body. Call the doctor or return if you develop increased swelling, pain, or redness, shortness of breath, chest pain, or any other significant change. I am writing you a prescription to instruct your work to give you a 10 minute break every 2 hours to raise her legs above your heart to decrease the swelling and hopefully the discomfort. We have discussed your use of ibuprofen while taking Depakote and Keppra as well as having a history of high blood pressure and diabetes. You will be returning to your primary doctor at [facility] and discussing this with him. I have also suggested you give to a patient access associate and get a recommendation on a more supportive shoe for your leg pain. FOLLOW-UP CARE: If you have been referred to a physician for follow-up care, call the physician s office for an appointment as you were instructed or within the next two days. If you experience worsening or a significant change in your symptoms, notify the physician immediately or return to the Emergency Department at any time for re-evaluation. Forms: Elevated Blood Pressure, Special Work Note, Return to Work Referrals: [facility] [Provider Group] - Follow up as needed
[2018-02-26 11:35] VITALS: BP 134/89
== END 2018-02-26 11:35 | disposition home or self-care (01) ==
LOC: ER 10:30
DX: R60.0 Localized edema (principal); M54.5 Low back pain; M79.604 Pain in right leg; M79.605 Pain in left leg; I10 Essential (primary) hypertension; E11.9 Type 2 diabetes mellitus without complications; R56.9 Unspecified convulsions; Z79.899 Other long term (current) drug therapy; Z91.030 Bee allergy status; Z91.038 Other insect allergy status; Z85.07 Personal history of malignant neoplasm of pancreas
CPT/HCPCS: 99284

== ENCOUNTER → 2018-07-07 | Day surgery (SDC) | payer MEDICAID ==
[~2018-07-07] MED LIST: LIDOCAINE 1% INJ-PF (10 MG/ML) 30 ML SDV ONE
--- NOTE | 2018-07-07 16:10 | RADIOLOGY REPORT (SQ) ---
EXAM DESCRIPTION: ARTHRO SHOULDER INJECTION; FLUORO/NEEDLE PLACEMENT COMPLETED DATE/TIME: 07/07/2018 3:54 pm REASON FOR STUDY: SUPERIOR GLENOID LABRUM LESION OF LEFT SHOULDER S43.432A SUPERIOR GLENOID LABRUM LESION OF LEFT SHOULDER, IN COMPARISON: None. FLUOROSCOPY TIME: 0.4 minutes 2 images saved to PACS. LIMITATIONS: None. PROCEDURE: Procedure, risks, benefits and alternatives explained to patient who then gave written co nsent. The left shoulder was marked and a time out was called for correct procedure verification. Po sterior entry site marked using fluoroscopic guidance. Shoulder prepped and draped using sterile agata hnique. Local anesthesia achieved using 1% lidocaine injection. Hypodermic needle introduced into t he joint space under direct fluoroscopic visualization. Non-ionic contrast instilled to confirm intra -articular position. Dilute gadolinium solution then injected. Needle removed and entry site covered with sterile bandage. No immediate complications noted. TECHNIQUE: Digital images acquired during fluoroscopy and stored on PACS. Patient immediately take n to the MR suite for additional imaging. INJECTION LOCATION: Posterior left shoulder. CONTRAST TYPE AND AMOUNT: 1 cc Isovue 10 cc Dotarem/Saline mixture. IMPRESSION: SUCCESSFUL NEEDLE PLACEMENT AND INJECTION FOR LEFT SHOULDER MR ARTHROGRAM USING POSTERIO R APPROACH. COMMENT: Quality ID 145: Final reports for procedures using fluoroscopy that document radiation exp osure indices, or exposure time and number of fluorographic images (if radiation exposure indices are not available) TECHNICAL DOCUMENTATION: JOB ID: [id number] [employer]- All Rights Reserved Reading location - IP/workstation name: [email or web address]
--- NOTE | 2018-07-07 16:10 | RADIOLOGY REPORT (SQ) ---
EXAM DESCRIPTION: ARTHRO SHOULDER INJECTION; FLUORO/NEEDLE PLACEMENT COMPLETED DATE/TIME: 07/07/2018 3:54 pm REASON FOR STUDY: SUPERIOR GLENOID LABRUM LESION OF LEFT SHOULDER S43.432A SUPERIOR GLENOID LABRUM LESION OF LEFT SHOULDER, IN COMPARISON: None. FLUOROSCOPY TIME: 0.4 minutes 2 images saved to PACS. LIMITATIONS: None. PROCEDURE: Procedure, risks, benefits and alternatives explained to patient who then gave written co nsent. The left shoulder was marked and a time out was called for correct procedure verification. Po sterior entry site marked using fluoroscopic guidance. Shoulder prepped and draped using sterile agata hnique. Local anesthesia achieved using 1% lidocaine injection. Hypodermic needle introduced into t he joint space under direct fluoroscopic visualization. Non-ionic contrast instilled to confirm intra -articular position. Dilute gadolinium solution then injected. Needle removed and entry site covered with sterile bandage. No immediate complications noted. TECHNIQUE: Digital images acquired during fluoroscopy and stored on PACS. Patient immediately take n to the MR suite for additional imaging. INJECTION LOCATION: Posterior left shoulder. CONTRAST TYPE AND AMOUNT: 1 cc Isovue 10 cc Dotarem/Saline mixture. IMPRESSION: SUCCESSFUL NEEDLE PLACEMENT AND INJECTION FOR LEFT SHOULDER MR ARTHROGRAM USING POSTERIO R APPROACH. COMMENT: Quality ID 145: Final reports for procedures using fluoroscopy that document radiation exp osure indices, or exposure time and number of fluorographic images (if radiation exposure indices are not available) TECHNICAL DOCUMENTATION: JOB ID: [id number] [employer]- All Rights Reserved Reading location - IP/workstation name: [email or web address]
--- NOTE | 2018-07-07 16:43 | RADIOLOGY REPORT (SQ) ---
EXAM DESCRIPTION: MRI LT UPPER JOINT WITH COMPLETED DATE/TIME: 07/07/2018 4:20 pm REASON FOR STUDY: SUPERIOR GLENOID LABRUM LESION OF LEFT SHOULDER S43.432A SUPERIOR GLENOID LABRUM LESION OF LEFT SHOULDER, IN COMPARISON: 2014 TECHNIQUE: Left shoulder images acquired and stored on PACS. Oblique coronal, oblique sagittal, and axial imaging to include fat sensitive sequences as T1, water sensitive sequences as FST2/STIR, and c ontrast sensitive sequences as FST1. LIMITATIONS: None. FINDINGS: JOINT DISTENTION: Adequate. Potential minimal debris or synovitis. BONE MARROW AND CORTEX: No evidence of edema or acute fracture. No worrisome bone lesion. AC JOINT: No significant hypertrophic overgrowth. Subacromial space looks relatively preserved. GLENOHUMERAL JOINT: No subluxation or dislocation. No focal chondral lesions are detected. ROTATOR CUFF: No suggestion of significant tear or tendinosis. Very subtle fatty infiltration, sligh t atrophy in the supraspinatus and infraspinatus muscles likely. LABRUM AND BICEPS LABRAL COMPLEX: Suspect irregular tear along the superior labrum involving the taqueria ps anchor and tracking posteriorly. Potentially low grade type 2. Biceps tendon itself looks normal . INFERIOR LABRAL COMPLEX: Relatively diminutive anterior labrum diffusely. Irregular appearance throu ghout the posterior labrum and along the posterior and inferior glenoid. Consistent with previous os teolabral injury. No paralabral cyst formation. ADJACENT SOFT TISSUES: No axillary adenopathy or regional mass. OTHER: No other significant finding. IMPRESSION: 1. Chronic appearing changes related to previous labral and glenoid injury. 2. Probabl e type 2 slap lesion. Biceps tendon intact. 3. No significant cuff tear. TECHNICAL DOCUMENTATION: JOB ID: [id number] [employer]- All Rights Reserved Reading location - IP/workstation name: [email or web address]
== END ==
LOC: RAD 15:10
PROVIDERS: ATTEND Family Medicine
DX: S43.432A Superior glenoid labrum lesion of left shoulder, initial encounter (principal); X58.XXXA Exposure to other specified factors, initial encounter
CPT/HCPCS: 73222; 77002; 23350; A9576; J3490

== ENCOUNTER 2018-07-10 13:01 | Emergency (ER) | payer MEDICAID ==
[2018-07-10 13:14] VITALS: BP 125/85
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
--- NOTE | 2018-07-10 14:45 | RADIOLOGY REPORT (SQ) ---
EXAM DESCRIPTION: SHOULDER LEFT 2 OR MORE VIEWS COMPLETED DATE/TIME: 07/10/2018 2:30 pm REASON FOR STUDY: popped left shoulder lifting heavyboxes COMPARISON: Left shoulder films 06/04/2015 Two-view chest 11/08/2017 NUMBER OF VIEWS: Three views. TECHNIQUE: Internal rotation, external rotation, and Y view images acquired of the left shoulder. LIMITATIONS: None. FINDINGS: MINERALIZATION: Normal. BONES: No acute fracture or dislocation. No worrisome bone lesions. JOINTS: No glenohumeral joint malalignment. There is glenohumeral joint space narrowing and bony spu rring from osteoarthritis. No acromioclavicular joint widening. VISUALIZED LUNGS AND RIBS: No pneumothorax. No rib fracture. SOFT TISSUES: No radiopaque foreign body. OTHER: No other significant finding. IMPRESSION: No acute changes TECHNICAL DOCUMENTATION: JOB ID: [id number] [employer]- All Rights Reserved Reading location - IP/workstation name: [email or web address]
== END 2018-07-10 15:10 | disposition home or self-care (01) ==
LOC: ER 13:01
DX: M25.512 Pain in left shoulder (principal); G89.29 Other chronic pain
CPT/HCPCS: 99283; 73030; L3650

== ENCOUNTER 2018-07-14 20:02 | Emergency (ER) | payer MEDICAID ==
[2018-07-14] MEDS ORDERED: IBUPROFEN 800 MG TABLET PO ONE (21:00)
--- NOTE | 2018-07-14 21:06 | ER Document Report ---
HPI - HPI Patient complains to provider of: left foot pain Pain Level: 4 Context: Pt. stated that she has had left foot pain for the last 6 months. Stated that she was to her PCP Dr. Ellis who stated she had "flat fleet." He told her to take Motrin and use ice. Pt. stated that today the pain has increased (more around her ankle) and her foot looks swollen to her. Denies any h/o DVT or PE. Denies any recent trauma to foot or leg. Denies any long car rides, train rides , or plane rides. Stated she does stand for a long period of time for her job. Denies pain in left knee or hip. PMH: DM, SZ, HTN Meds: Metformin, Keppra, Depakote, HCTZ Allergies: Bees - REPRODUCTIVE LMP: 06-24-18 Reproductive: DENIES: : - MUSCULOSKELETAL Musculoskeletal: REPORTS: Extremity pain - lle Past Medical History - General Information source: Patient - Social History Smoking Status: Never Smoker Chew tobacco use (# tins/day): No Frequency of alcohol use: None Drug Abuse: None Lives with: Spouse/Significant other Family History: DM Patient has suicidal ideation: No Patient has homicidal ideation: No - Past Medical History Cardiac Medical History: Reports: Hx Hypertension Pulmonary Medical History: Denies: Hx Tuberculosis Neurological Medical History: Reports: Hx Migraine, Hx Seizures Endocrine Medical History: Reports: Hx Diabetes Mellitus Type 2 Renal/ Medical History: Denies: Hx Peritoneal Dialysis Malignancy Medical History: Reports: Hx Pancreatic Cancer Musculoskeletal Medical History: Reports Hx Arthritis Psychiatric Medical History: Reports: Hx Anxiety, Hx Depression, Hx Schizophrenia Past Surgical History: Reports: Hx Cholecystectomy, Hx Tubal Ligation - Immunizations Hx Diphtheria, Pertussis, Tetanus Vaccination: Yes Hx Pneumococcal Vaccination: 10/19/00 Vertical Provider Document - CONSTITUTIONAL Notes: GENERAL: Alert, interacts well. No acute distress. HEAD: Normocephalic, atraumatic. EYES: Pupils equal, round, and reactive to light. Extraocular movements intact. ENT: Oral mucosa moist, tongue midline. NECK: Full range of motion. Supple. Trachea midline. LUNGS: Clear to auscultation bilaterally, no wheezes, rales, or rhonchi. No respiratory distress. HEART: Regular rate and rhythm. No murmur ABDOMEN: Soft, non-tender. Non-distended. Bowel sounds present in all 4 quadrants. EXTREMITIES: Moves all 4 extremities spontaneously. normal radial and dorsalis pedis pulses bilaterally. No cyanosis. Minor swelling noted medial malleolus. Pain on palpation entire foot, stating sometimes it feels numb and sometimes it hurts. BACK: no cervical, thoracic, lumbar midline tenderness. No saddle anesthesia, normal distal neurovascular exam. No loss of bowel or bladder, urinary retention. NEUROLOGICAL: Alert and oriented x3. Normal speech. PSYCH: Normal affect, normal mood. SKIN: Warm, dry, normal turgor. No rashes or lesions noted. - INFECTION CONTROL TRAVEL OUTSIDE OF THE [place] IN LAST 30 DAYS: No Course - Re-evaluation Re-evalutation: X-ray reveals no bony abnormalities. Discussed with patient need for follow-up with primary care and possible neuropathic medications. Discussed ankle immobilization due to malleolus pain and swelling. Pt. wishes for taran wrap, will have RN apply. Pt. stated she has been walking on it so she does not need crutches. Patient continues without pain or tenderness in the left calf. Return precautions given. - Vital Signs Vital signs: Temp Pulse Resp BP Pulse Ox 97.4 F 73 17 133/83 H 96 07/14/18 20:08 07/14/18 20:08 07/14/18 20:08 07/14/18 20:08 07/14/18 20:08 Discharge - Discharge Clinical Impression: Foot pain Qualifiers: Laterality: left Qualified Code(s): M79.672 - Pain in left foot Ankle pain Qualifiers: Chronicity: chronic Laterality: left Qualified Code(s): M25.572 - Pain in left ankle and joints of left foot; G89.29 - Other chronic pain; G89.29 - Other chronic pain Condition: Stable Disposition: HOME, SELF-CARE Additional Instructions: As discussed your x-ray shows no bony abnormalities. You need to follow-up with your primary care provider in the next 24-48 hours. Continue to use ice and NSAIDs as discussed with your primary care. Orthopedic phone number will be given. Return to emergency room should your pain increase, he had numbness or tingling in any extremity, or any other concerning symptoms. Forms: Return to Work Referrals: CRISTINA DAVILA MD [ACTIVE STAFF] - Follow up as needed
--- NOTE | 2018-07-14 21:50 | RADIOLOGY REPORT (SQ) ---
EXAM DESCRIPTION: XR FOOT 3 OR MORE VIEWS COMPLETED DATE/TME: 07/14/2018 00:00 CLINICAL HISTORY: 48 years, Female, pain COMPARISON: None. NUMBER OF VIEWS: Three TECHNIQUE: Three views LEFT foot were obtained in AP, lateral and oblique projection. LIMITATIONS: None. FINDINGS: Pelvis valgus deformity with mild degenerative change of the first metatarsal phalangeal joint space. Lateral subchondral sclerosis of the distal first digit metatarsal. The possibility of postoperative change versus inflammatory arthropathy may be considered. Please correlate with surgical history and patient site of pain. The joint spaces are preserved. No fracture or dislocation. Soft tissues appear to be within normal limits. Achilles tendon enthesophyte and small plantar heel spur. IMPRESSION: Degenerative changes without findings to suggest specific etiology of the patient's symptoms. 2011 [employer]- All Rights Reserved
[2018-07-14 23:04] VITALS: BP 126/74
== END 2018-07-14 23:04 | disposition home or self-care (01) ==
LOC: ER 20:02
DX: M79.672 Pain in left foot (principal); M25.572 Pain in left ankle and joints of left foot; G89.29 Other chronic pain; I10 Essential (primary) hypertension; E11.9 Type 2 diabetes mellitus without complications; Z90.49 Acquired absence of other specified parts of digestive tract; Z98.51 Tubal ligation status; Z79.84 Long term (current) use of oral hypoglycemic drugs
CPT/HCPCS: 99283; 73630; J3490

== ENCOUNTER 2018-07-19 09:48 | Emergency (ER) | payer MEDICAID ==
[2018-07-19] MEDS ORDERED: ONDANSETRON HCL INJ/PF 4 MG/2 ML SDV IV ONE (10:12)
[2018-07-19] MEDS ORDERED: DIVALPROEX SODIUM 500 MG TAB.SR.24H PO ONE (10:14)
[2018-07-19] MEDS ORDERED: LEVETIRACETAM 500 MG TABLET PO ONE (10:14)
--- NOTE | 2018-07-19 10:16 | ER Document Report ---
ED Medical Screen (RME) - General Chief Complaint: Abdominal Pain Stated Complaint: VOMITING/DIARRHEA/ABDOMINAL PAIN Time Seen by Provider: 07/19/18 10:04 Mode of Arrival: Ambulatory Information source: Patient, PENDING SALE TO [facility] Records Notes: 48-year-old female with seizure history presents with complaint of nausea, vomiting, diarrhea and generalized abdominal pain that started this morning. Patient is concerned because she is not able to keep down her seizure medications of Keppra and Depakote. I have greeted and performed a rapid initial assessment of this patient. A comprehensive ED assessment and evaluation of the patient, analysis of test results and completion of medical decision making process we will be contacted by additional ED providers. PHYSICAL EXAMINATION: GENERAL: Well-appearing, well-nourished and in no acute distress. LUNGS: No respiratory distress Musculoskeletal: Normal range of motion NEUROLOGICAL: Normal speech, normal gait. PSYCH: Normal mood, normal affect. SKIN: Warm, Dry, normal turgor, no rashes or lesions noted. TRAVEL OUTSIDE OF THE [place] IN LAST 30 DAYS: No - HPI Onset: This morning Onset/Duration: Sudden Quality of pain: Cramping Severity: Mild Associated Symptoms: Diarrhea, Nausea, Vomiting Exacerbated by: Denies Relieved by: Denies Similar symptoms previously: No Recently seen / treated by doctor: No - Related Data Smoking: Non-smoker Frequency of alcohol use: None Drug Abuse: None Allergies/Adverse Reactions: venom-wasp [Wasp Venom] Allergy (Severe, Verified 07/19/18 09:53) SWELLING No Known Drug Allergies Allergy (Verified 07/19/18 09:53) Bees Allergy (Severe, Uncoded 07/19/18 09:53) swelling Past Medical History - Social History Chew tobacco use (# tins/day): No Frequency of alcohol use: None Drug Abuse: None - Past Medical History Cardiac Medical History: Reports: Hx Hypertension Pulmonary Medical History: Denies: Hx Tuberculosis Neurological Medical History: Reports: Hx Migraine, Hx Seizures Endocrine Medical History: Reports: Hx Diabetes Mellitus Type 2 Renal/ Medical History: Denies: Hx Peritoneal Dialysis Malignancy Medical History: Reports: Hx Pancreatic Cancer Musculoskeltal Medical History: Reports Hx Arthritis Psychiatric Medical History: Reports: Hx Anxiety, Hx Depression, Hx Schizophrenia Past Surgical History: Reports: Hx Cholecystectomy, Hx Tubal Ligation - Immunizations Hx Diphtheria, Pertussis, Tetanus Vaccination: Yes Physical Exam - Vital signs Vitals: Temp Pulse Resp BP Pulse Ox 97.4 F 68 20 137/81 H 99 07/19/18 10:04 07/19/18 10:04 07/19/18 10:04 07/19/18 10:04 07/19/18 10:04 Course - Vital Signs Vital signs: Temp Pulse Resp BP Pulse Ox 97.4 F 68 20 137/81 H 99 07/19/18 10:04 07/19/18 10:04 07/19/18 10:04 07/19/18 10:04 07/19/18 10:04
[2018-07-19 11:34] LABS: BILIRUBIN,URINE NEGATIVE (NEGATIVE); COLOR,URINE YELLOW; GLUCOSE, URINE NEGATIVE (NEGATIVE); KETONES,URINE TRACE mg/dL (NEGATIVE); LEUKOCYTE ESTERASE,URINE TRACE (NEGATIVE); NITRITE,URINE NEGATIVE (NEGATIVE); PROTEIN,URINE 30 mg/dL (NEGATIVE)
[2018-07-19] MEDS ORDERED: NORMAL SALINE 1000 ML 1,000 ML IV ONE (11:43)
[2018-07-19 11:46] LABS: APPEARANCE,URINE SLIGHTLY-CLOUDY
[2018-07-19 11:46] LABS: ABSOLUTE EOSINOPHILS # (AUTO) 0.1 10^3/uL (0.0-0.6); ABSOLUTE LYMPHOCYTES (AUTO) 1.7 10^3/uL (0.5-4.7); ABSOLUTE MONOCYTES (AUTO) 0.8 10^3/uL (0.1-1.4); ABSOLUTE NEUT (AUTO) 1.9 10^3/uL (1.7-8.2); BASOPHILS % (AUTO) 0.7 % (0-2); EOSINOPHILS % (AUTO) 2.2 % (0-6); HEMATOCRIT 36.9 % (36.0-47.0); HEMOGLOBIN 12.4 g/dL (12.0-15.5); LYMPHOCYTES % (AUTO) 37.9 % (13-45); MEAN CORPUSCULAR HEMOGLOBIN 29.5 pg (27.0-33.4); MEAN CORPUSCULAR HGB CONC 33.8 g/dL (32.0-36.0); MEAN CORPUSCULAR VOLUME 87 fl (80-97); MONOCYTES % (AUTO) 16.8 % (3-13); PLATELET COUNT 202 10^3/uL (150-450); RED BLOOD COUNT 4.22 10^6/uL (3.72-5.28); RED CELL DISTRIBUTION WIDTH 13.9 % (11.5-14.0); SEGMENTED NEUTROPHILS % (AUTO) 42.4 % (42-78); TOTAL CELLS COUNTED % (AUTO) 100 %; WHITE BLOOD COUNT 4.5 10^3/uL (4.0-10.5)
[2018-07-19 11:47] LABS: ALANINE AMINOTRANSFERASE 19 U/L (9-52); ALBUMIN 4.5 g/dL (3.5-5.0); ALKALINE PHOSPHATASE 45 U/L (38-126); ANION GAP 10 (5-19); ASPARTATE AMINO TRANSFERASE 24 U/L (14-36); BILIRUBIN,DIRECT 0.7 mg/dL (0.0-0.4); BILIRUBIN,TOTAL 0.7 mg/dL (0.2-1.3); BLOOD UREA NITROGEN 15 mg/dL (7-20); CALCIUM 9.6 mg/dL (8.4-10.2); CARBON DIOXIDE 27 mmol/L (22-30); CHLORIDE 102 mmol/L (98-107); GLUCOSE 99 mg/dL (75-110); LIPASE 76.4 U/L (23-300); POTASSIUM 4.2 mmol/L (3.6-5.0); SODIUM 138.9 mmol/L (137-145); TOTAL PROTEIN 8.1 g/dL (6.3-8.2)
--- NOTE | 2018-07-19 11:48 | ER Document Report ---
ED GI/ - General Chief Complaint: Abdominal Pain Stated Complaint: VOMITING/DIARRHEA/ABDOMINAL PAIN Time Seen by Provider: 07/19/18 10:04 Mode of Arrival: Ambulatory Notes: Patient is a 48-year-old female presenting to the emergency room complaining of vomiting and diarrhea. Patient states around 3:00 this morning she started vomiting x3 nonbloody nonbilious and has had diarrhea "too many times to count" . Patient also denies blood in stool. Patient denies fever, chest pain, shortness of breath, URI symptoms, dysuria, or vaginal discharge. Patient states after vomiting started she developed epigastric abdominal pain. States the pain has since subsided. Patient also states she has not had any episodes of vomiting or diarrhea in the emergency department. Past medical history: Seizures Medication: Keppra, Depakote Allergies: Bees Surgeries:cholecystectomy, tubal ligation TRAVEL OUTSIDE OF THE [place] IN LAST 30 DAYS: No - Related Data Allergies/Adverse Reactions: venom-wasp [Wasp Venom] Allergy (Severe, Verified 07/19/18 09:53) SWELLING No Known Drug Allergies Allergy (Verified 07/19/18 09:53) Bees Allergy (Severe, Uncoded 07/19/18 09:53) swelling Past Medical History - General Information source: Patient, [facility] Records - Social History Smoking Status: Never Smoker Chew tobacco use (# tins/day): No Frequency of alcohol use: None Drug Abuse: None Lives with: Family Family History: DM Patient has suicidal ideation: No Patient has homicidal ideation: No - Past Medical History Cardiac Medical History: Reports: Hx Hypertension Pulmonary Medical History: Denies: Hx Tuberculosis Neurological Medical History: Reports: Hx Migraine, Hx Seizures Endocrine Medical History: Reports: Hx Diabetes Mellitus Type 2 Renal/ Medical History: Denies: Hx Peritoneal Dialysis Malignancy Medical History: Reports: Hx Pancreatic Cancer Musculoskeletal Medical History: Reports Hx Arthritis Psychiatric Medical History: Reports: Hx Anxiety, Hx Depression, Hx Schizophrenia Past Surgical History: Reports: Hx Cholecystectomy, Hx Tubal Ligation - Immunizations Hx Diphtheria, Pertussis, Tetanus Vaccination: Yes Hx Pneumococcal Vaccination: 10/19/00 Review of Systems - Review of Systems Constitutional: See HPI EENT: See HPI Cardiovascular: See HPI Respiratory: See HPI Gastrointestinal: See HPI Genitourinary: See HPI Female Genitourinary: See HPI Musculoskeletal: No symptoms reported Skin: No symptoms reported Hematologic/Lymphatic: No symptoms reported Neurological/Psychological: No symptoms reported Physical Exam - Vital signs Vitals: Temp Pulse Resp BP Pulse Ox 97.4 F 68 20 137/81 H 99 07/19/18 10:04 07/19/18 10:04 07/19/18 10:04 07/19/18 10:04 07/19/18 10:04 - Notes Notes: GENERAL: Alert, interacts well. No acute distress. HEAD: Normocephalic, atraumatic. EYES: Pupils equal, round, and reactive to light. Extraocular movements intact. ENT: Oral mucosa moist, tongue midline. NECK: Full range of motion. Supple. Trachea midline. LUNGS: Clear to auscultation bilaterally, no wheezes, rales, or rhonchi. No respiratory distress. HEART: Regular rate and rhythm. No murmur ABDOMEN: Soft, non-tender. Non-distended. Bowel sounds present in all 4 quadrants. Mild epigastric tenderness only on deep palpation. No McBurney's point tenderness, no Emerson sign. EXTREMITIES: Moves all 4 extremities spontaneously. No edema, normal radial and dorsalis pedis pulses bilaterally. No cyanosis. BACK: no cervical, thoracic, lumbar midline tenderness. No saddle anesthesia, normal distal neurovascular exam. NEUROLOGICAL: Alert and oriented x3. Normal speech. PSYCH: Normal affect, normal mood. SKIN: Warm, dry, normal turgor. No rashes or lesions noted. Course - Re-evaluation Re-evalutation: After GI Cocktail Pt. stated she no longer had any epigastric abd pain. Stated she feels a lot better now. IV fluids administered in ED. Zofran will be given for home use, return precautions given. Urine sent for culture. Continues to deny dysuria. Continues to have no episodes of vomiting or diarrhea in the emergency department. - Vital Signs Vital signs: Temp Pulse Resp BP Pulse Ox 97.5 F 60 15 122/64 99 07/19/18 13:03 07/19/18 13:03 07/19/18 13:03 07/19/18 13:03 07/19/18 13:03 - Laboratory Result Diagrams: 07/19/18 11:30 07/19/18 10:50 Laboratory results interpreted by me: 07/19/18 07/19/18 07/19/18 10:50 10:50 11:30 Monocytes % 16.8 H Direct Bilirubin 0.7 H Urine Protein 30 H Urine Ketones TRACE H Urine Urobilinogen 2.0 H Ur Leukocyte Esterase TRACE H Urine Ascorbic Acid 40 H Discharge - Discharge Clinical Impression: Vomiting Qualifiers: Vomiting type: unspecified Vomiting Intractability: non-intractable Nausea presence: unspecified Qualified Code(s): R11.10 - Vomiting, unspecified Diarrhea Qualifiers: Diarrhea type: unspecified type Qualified Code(s): R19.7 - Diarrhea, unspecified Condition: Stable Disposition: HOME, SELF-CARE Instructions: Diarrhea, Nonspecific ([facility]), Intravenous (IV) Fluids ([facility]), Vomiting ([facility]) Prescriptions: Famotidine [Pepcid 40 mg Tablet] 40 mg PO BID #60 tablet Ondansetron [Zofran Odt 4 mg Tablet] 1 - 2 tab PO Q4H PRN #15 tab.rapdis PRN Reason: For Nausea/Vomiting Sucralfate [Carafate 1 gm Tablet] 1 gm PO QID #20 tablet
[2018-07-19] MEDS ORDERED: METOCLOPRAMIDE HCL ORAL SOLN 10 MG/10 ML UDCUP PO ONE (11:55)
[2018-07-19] MEDS ORDERED: LIDOCAINE 2% VISCOUS SOLN 20 ML UDCUP PO ONE (11:55)
[2018-07-19] MEDS ORDERED: MAG HYDROX/AL HYDROX/SIMETH SUSP 30 ML UDCUP PO ONE (11:55)
[2018-07-19 13:04] VITALS: BP 122/64
== END 2018-07-19 13:05 | disposition home or self-care (01) ==
LOC: ER 09:48
DX: R19.7 Diarrhea, unspecified (principal); R11.10 Vomiting, unspecified; R10.13 Epigastric pain; I10 Essential (primary) hypertension; E11.9 Type 2 diabetes mellitus without complications; R56.9 Unspecified convulsions; Z79.899 Other long term (current) drug therapy; Z90.49 Acquired absence of other specified parts of digestive tract; Z98.51 Tubal ligation status; Z91.030 Bee allergy status; Z91.038 Other insect allergy status; Z85.07 Personal history of malignant neoplasm of pancreas
CPT/HCPCS: 99284; 96361; 96374; 36415; 83690; 85025; 80053; 81001; J3490 ×5; J2405

== ENCOUNTER 2018-08-15 20:16 | Emergency (ER) | payer MEDICAID ==
--- NOTE | 2018-08-15 21:38 | RADIOLOGY REPORT (SQ) ---
4 VIEWS OF THE RIGHT KNEE HISTORY: Knee pain and swelling. COMPARISON: None. FINDINGS: Generalized osteopenia is present. No acute fracture or malalignment. Tricompartmental degenerative changes, greatest in the medial compartment. No knee joint effusion. Mild soft tissue swelling is seen. IMPRESSION: No acute fracture is seen.
[2018-08-15] MEDS ORDERED: DEXAMETHASONE SOD PHOS INJ 10 MG/1 ML VIAL IM ONE (22:36)
--- NOTE | 2018-08-15 22:42 | ER Document Report ---
ED Extremity Problem, Lower - General Chief Complaint: Knee Pain Stated Complaint: RIGHT KNEE SWOLLEN Time Seen by Provider: 08/15/18 21:38 Mode of Arrival: Ambulatory Information source: Patient Notes: 48-year-old female presented to ED for complaint of swelling to the right knee when she woke up this morning. She states she then went to work where she stands all day on her knee. When she came home her knee was more swollen. She states that her then put a ice pack directly on her knee which caused her need to feel like it was burning. She states it did not developed a red area to the skin just above her knee. Patient is able to ambulate with no difficulty but does have some discomfort to the knee. She states she did miss this knee up at about 17 years old but did not normally have problems with this. She states she does stand on her feet all day at work. Patient does have some mild swelling and a red area about 3 inches x 2 inches just above the knee where she states her placed the ice pack directly on her skin. TRAVEL OUTSIDE OF THE [place] IN LAST 30 DAYS: No - HPI Patient complains to provider of: Pain, Swelling. No: Injury Location: Knee - Right Occurred: This morning Onset/Duration: Gradual, Persistent Quality of pain: Burning - After placed ice pack or new knee, Pressure Severity: Moderate - She states that we did get up to a 5 Pain Level: 3 Context: Other - Walking Recent injury: No Associated symptoms: Painful ambulation Exacerbated by: Movement, Walking Relieved by: Nothing - Related Data Allergies/Adverse Reactions: venom-wasp [Wasp Venom] Allergy (Severe, Verified 07/19/18 09:53) SWELLING No Known Drug Allergies Allergy (Verified 07/19/18 09:53) Bees Allergy (Severe, Uncoded 07/19/18 09:53) swelling Past Medical History - General Information source: Patient - Social History Smoking Status: Never Smoker Cigarette use (# per day): No Chew tobacco use (# tins/day): No Smoking Education Provided: No Frequency of alcohol use: None Drug Abuse: None Lives with: Family Family History: DM Patient has suicidal ideation: No Patient has homicidal ideation: No - Past Medical History Cardiac Medical History: Reports: Hx Hypertension Pulmonary Medical History: Reports: None EENT Medical History: Reports: None Neurological Medical History: Reports: Hx Migraine, Hx Seizures Endocrine Medical History: Reports: Hx Diabetes Mellitus Type 2 Renal/ Medical History: Reports: None Malignancy Medical History: Reports: None, Hx Pancreatic Cancer GI Medical History: Reports: None Musculoskeletal Medical History: Reports Hx Arthritis, Reports Hx Musculoskeletal Deformity - Right knee Skin Medical History: Reports None Psychiatric Medical History: Reports: Hx Anxiety, Hx Depression, Hx Schizophrenia Traumatic Medical History: Reports: None Infectious Medical History: Reports: None Past Surgical History: Reports: Hx Cholecystectomy, Hx Tubal Ligation - Immunizations Hx Pneumococcal Vaccination: 10/19/00 Review of Systems - Review of Systems Constitutional: No symptoms reported EENT: No symptoms reported Cardiovascular: No symptoms reported Respiratory: No symptoms reported Gastrointestinal: No symptoms reported Genitourinary: No symptoms reported Female Genitourinary: No symptoms reported Musculoskeletal: Other - Pain redness and swelling just above the right knee to the lateral aspect. Patient denies any injury. She states it was mildly swollen this morning when she woke up but became red after the placed an ice pack on her knee Skin: No symptoms reported Hematologic/Lymphatic: No symptoms reported Neurological/Psychological: No symptoms reported -: Yes All other systems reviewed and negative Physical Exam - Vital signs Vitals: Temp Pulse Resp BP Pulse Ox 98.4 F 80 22 H 123/82 99 08/15/18 20:36 08/15/18 20:36 08/15/18 20:36 08/15/18 20:36 08/15/18 20:36 Interpretation: Normal - General General appearance: Appears well, Alert - HEENT Head: Normocephalic, Atraumatic Eyes: Normal Pupils: PERRL - Respiratory Respiratory status: No respiratory distress Chest status: Nontender Breath sounds: Normal Chest palpation: Normal - Cardiovascular Rhythm: Regular Heart sounds: Normal auscultation Murmur: No - Abdominal Inspection: Normal Distension: No distension Bowel sounds: Normal Tenderness: Nontender Organomegaly: No organomegaly - Back Back: Normal, Nontender - Extremities General upper extremity: Normal inspection, Nontender, Normal color, Normal ROM , Normal temperature General lower extremity: Normal ROM, Normal temperature. No: Angelika's sign Knee: Tender, Pain with ROM, Patellar tendon intact. No: Abrasion, Deformity, Dislocation, Drawer's test instability, Ecchymosis, Instability, Joint effusion , Laceration, Laxity with valgus stress, Laxity with varus stress, Popliteal fossa tender, Tender joint line, Unable to bear weight - Neurological Neuro grossly intact: Yes Cognition: Normal Orientation: AAOx4 Melissa Coma Scale Eye Opening: Spontaneous Melissa Coma Scale Verbal: Oriented [place] Coma Scale Motor: Obeys Commands Melissa Coma Scale Total: 15 Speech: Normal Motor strength normal: LUE, RUE, LLE, RLE Sensory: Normal - Psychological Associated symptoms: Normal affect, Normal mood - Skin Skin Temperature: Warm Skin Moisture: Dry Skin Color: Normal Course - Re-evaluation Re-evalutation: 08/16/18 01:42 Patient was treated with dexamethasone for the pain and tenderness to her right lateral knee. She was instructed to follow-up with her primary doctor tomorrow and to take off a couple days of work. She was instructed on elevation and ice for her knee but not to put the ice pack directly on her knee. Patient was also given knee exercises to do. Patient was able to verbalize understanding and agreement with treatment plan and patient was discharged home. - Vital Signs Vital signs: Temp Pulse Resp BP Pulse Ox 98.0 F 60 16 120/64 99 08/16/18 00:21 08/16/18 00:21 08/16/18 00:21 08/16/18 00:21 08/16/18 00:21 - Diagnostic Test Radiology reviewed: Image reviewed, Reports reviewed Discharge - Discharge Clinical Impression: swelling above the right knee Condition: Stable Disposition: HOME, SELF-CARE Additional Instructions: You were seen today for a red swollen area just above the lateral right knee. You stated you woke up this morning with some mild swelling and then went to work and worked all day on this knee. He stated when you came home your put some ice right on the knee and it became red. You deny any injury to this knee. You state you have had a injury to this knee in the past and he had to get injections into the your knee. STEROID MEDICATION: You have been given an injection of medicine of the cortisone/steroid class. This medication is used to control inflammation or allergy. It is often continued as a pill for a short period of time, until the acute process subsides. There are usually no side effects from short-term use of cortisone-like medications. Some persons feel an increased sense of well-being and are not sleepy at bedtime. Long-term use of cortisone medications is best avoided, unless required for a severe condition. If your condition does not remit, or relapses after the course of corticosteroid medication, you should consult your physician. Ibuprofen Ibuprofen is an excellent, safe drug for pain control. In addition, it has potent antiinflammatory effects which are beneficial, especially in the treatment of injuries, arthritis, or tendonitis. It's best to take ibuprofen with food. Persons with ulcer disease or allergy to aspirin should notify their physician of this before taking ibuprofen. Take the medication exactly as prescribed. Don't take additional doses unless instructed to do so by your doctor. If you develop wheezing, shortness of breath, hives, faintness, stomach pain, vomiting, or dark black stools, return for re-evaluation at once. Ice Packs Apply ice packs frequently against the painful area. Many different schedules are recommended, such as "20 minutes on, 20 minutes off" or "one hour ice, two hours rest." If you need to work, you may need to go longer between ice treatments. You should plan to have the area ice packed AT LEAST one fourth of the time. The ice should be applied over the wrap, tape, or splint, or over a layer of cloth -- not directly against the skin. Some ice bags have a built-in cloth and can be put directly on the skin. Your x-ray was negative for any acute bony abnormalities or any fluid in the knee joint at this time. You do have osteopenia which means a decrease in bone density and you will need to follow-up with your primary doctor for this as well as orthopedics. You are being given a copy of the written report of the x- ray to follow-up with your primary doctor and with your orthopedic doctor. FOLLOW-UP CARE: If you have been referred to a physician for follow-up care, call the physician s office for an appointment as you were instructed or within the next two days. If you experience worsening or a significant change in your symptoms, notify the physician immediately or return to the Emergency Department at any time for re-evaluation. Forms: Return to Work Referrals: RAND LLAMAS MD [[employer]FF] - Follow up tomorrow
[2018-08-16 01:11] VITALS: BP 120/64
== END 2018-08-16 00:30 | disposition home or self-care (01) ==
LOC: ER 20:16
DX: M79.89 Other specified soft tissue disorders (principal); M25.561 Pain in right knee; E11.9 Type 2 diabetes mellitus without complications; I10 Essential (primary) hypertension; Z91.038 Other insect allergy status; Z91.030 Bee allergy status
CPT/HCPCS: 99283; 96372; 73564; J1100

== ENCOUNTER 2018-12-05 19:55 | Emergency (ER) | payer MEDICAID, OTHER ==
[2018-12-05] MEDS ORDERED: NORMAL SALINE 1000 ML 1,000 ML IV ONE (21:19)
[2018-12-05] MEDS ORDERED: ACETAMINOPHEN 325 MG TABLET PO ONE (21:20)
[2018-12-05] MEDS ORDERED: DIPHENHYDRAMINE HCL 50 MG/ML VIAL IV ONE (21:35)
[2018-12-05] MEDS ORDERED: KETOROLAC TROMETHAMINE INJ/PF 30 MG/1 ML SDV IV ONE (21:35)
[2018-12-05] MEDS ORDERED: PROCHLORPERAZINE EDISYLATE INJ 10 MG/2 ML VIAL IV ONE (21:36)
--- NOTE | 2018-12-05 21:42 | ER Document Report ---
ED General - General Chief Complaint: Flu Symptoms Stated Complaint: HEADACHE,SORE THROAT,COUGH Time Seen by Provider: 12/05/18 21:19 Notes: Patient is a 48-year-old female presents to the emergency department for a generalized headache, cough, congestion, nausea, body aches, sore throat for the last 2 days. Patient states her was initially sick with flulike symptoms and she believes she caught them from him. Patient states she does have a history of seizures and at times a migraine is an aura for her seizures. This is why she presents to the emergency room. Patient is denying any chest pain, abdominal pain, dysuria, Vomiting, diarrhea. Past medical history: Seizures, migraines, hypertension, diabetes, anxiety Medications: Metformin, Keppra, Depakote, HCTZ, amlodipine, Ativan Allergies: Bees Patient states her last menstrual period was 11/07/2018 Patient has had a tubal ligation. TRAVEL OUTSIDE OF THE [place] IN LAST 30 DAYS: No - Related Data Allergies/Adverse Reactions: venom-wasp [Wasp Venom] Allergy (Severe, Verified 07/19/18 09:53) SWELLING No Known Drug Allergies Allergy (Verified 07/19/18 09:53) Bees Allergy (Severe, Uncoded 07/19/18 09:53) swelling Past Medical History - General Information source: Patient - Social History Smoking Status: Unknown if Ever Smoked Family History: Reviewed & Not Pertinent, DM - Past Medical History Cardiac Medical History: Reports: Hx Hypertension Pulmonary Medical History: Denies: Hx Tuberculosis Neurological Medical History: Reports: Hx Migraine, Hx Seizures Endocrine Medical History: Reports: Hx Diabetes Mellitus Type 2 Renal/ Medical History: Denies: Hx Peritoneal Dialysis Malignancy Medical History: Reports: Hx Pancreatic Cancer Musculoskeletal Medical History: Reports Hx Arthritis, Reports Hx Musculoskeletal Deformity - Right knee Psychiatric Medical History: Reports: Hx Anxiety, Hx Depression, Hx Schizophrenia Past Surgical History: Reports: Hx Cholecystectomy, Hx Tubal Ligation - Immunizations Hx Diphtheria, Pertussis, Tetanus Vaccination: Yes Hx Pneumococcal Vaccination: 10/19/00 Review of Systems - Review of Systems Constitutional: See HPI EENT: See HPI Cardiovascular: See HPI Respiratory: See HPI Gastrointestinal: See HPI Genitourinary: See HPI Female Genitourinary: See HPI Musculoskeletal: See HPI, Joint pain Hematologic/Lymphatic: No symptoms reported Neurological/Psychological: See HPI Physical Exam - Vital signs Vitals: Temp Pulse Resp BP Pulse Ox 100.5 F H 100 18 145/86 H 98 12/05/18 20:15 12/05/18 20:15 12/05/18 20:15 12/05/18 20:15 12/05/18 20:15 - Notes Notes: GENERAL: Alert, interacts well. No acute distress. HEAD: Normocephalic, atraumatic. EYES: Pupils equal, round, and reactive to light. Extraocular movements intact. ENT: Oral mucosa moist, tongue midline. Nares patent, TM's intact, noneryt hematous, nonbulging bilaterally. Pharynx minorly erythematous with no palatal petechiae or exudate noted NECK: Full range of motion. Supple. Trachea midline. No lymphadenopathy appreciated LUNGS: Clear to auscultation bilaterally, no wheezes, rales, or rhonchi. No respiratory distress. HEART: Regular rate and rhythm. No murmur ABDOMEN: Soft, non-tender. Non-distended. Bowel sounds present in all 4 quadrants. EXTREMITIES: Moves all 4 extremities spontaneously. No edema, normal radial and dorsalis pedis pulses bilaterally. No cyanosis. BACK: no cervical, thoracic, lumbar midline tenderness. No saddle anesthesia, normal distal neurovascular exam. NEUROLOGICAL: Alert and oriented x3. Normal speech. cranial nerves II through XII grossly intact. PSYCH: Normal affect, normal mood. SKIN: Warm, dry, normal turgor. No rashes or lesions noted. Course - Re-evaluation Re-evalutation: 12/06/18 00:21 Patient's labs show no signs of leukocytosis, no signs of anemia, no signs of electrolyte abnormalities, no signs of urinary tract infection, her rapid strep test was negative, patient's chest x-ray shows no signs of pneumonia, pneumothorax, rib fracture. Patient states she feels "so much better" after treatments in the emergency room. Patient was sleeping upon my arrival for reevaluation, easily arousable with verbal stimuli. Patient states she feels ready to go home. Patient's vitals are stable for discharge. - Vital Signs Vital signs: Temp Pulse Resp BP Pulse Ox 100.5 F H 100 12 144/90 H 94 12/05/18 20:15 12/05/18 20:15 12/05/18 23:50 12/05/18 23:50 12/05/18 23:50 - Laboratory Result Diagrams: 12/05/18 21:35 12/05/18 21:35 Laboratory results interpreted by me: 12/05/18 12/05/18 21:35 23:47 Glucose 114 H Urine Urobilinogen 4.0 H Ur Leukocyte Esterase SMALL H Urine Ascorbic Acid 40 H Discharge - Discharge Clinical Impression: Flu-like symptoms Migraine Qualifiers: Migraine type: unspecified Status migrainosus presence: without status migrainosus Intractability: not intractable Qualified Code(s): G43.909 - Migraine, unspecified, not intractable, without status migrainosus Condition: Stable Disposition: HOME, SELF-CARE Instructions: Migraine Headache ([facility]), Intravenous Compazine for Headaches ([facility]), Upper Respiratory Illness ([facility]) Additional Instructions: As we discussed you have been seen and treated in the emergency department for an upper respiratory infection. Unfortunately these infections are caused by viruses and do not respond to antibiotics. You have also been treated for your migraine. Please continue to stay well-hydrated and take prescription medications. Please make sure you follow-up with your primary care provider in the next 24-48 hours. Please return to the emergency room should you have any other concerning symptoms. Forms: Return to Work
[2018-12-05 21:46] LABS: HEMOGLOBIN 12.3 g/dL (12.0-15.5); MEAN CORPUSCULAR HEMOGLOBIN 29.9 pg (27.0-33.4); MEAN CORPUSCULAR HGB CONC 34.1 g/dL (32.0-36.0); MEAN CORPUSCULAR VOLUME 88 fl (80-97); PLATELET COUNT 170 10^3/uL (150-450); RED CELL DISTRIBUTION WIDTH 12.9 % (11.5-14.0); WHITE BLOOD COUNT 4.5 10^3/uL (4.0-10.5)
[2018-12-05 21:59] LABS: ALANINE AMINOTRANSFERASE 24 U/L (9-52); ALBUMIN 4.3 g/dL (3.5-5.0); ALKALINE PHOSPHATASE 58 U/L (38-126); ANION GAP 10 (5-19); ASPARTATE AMINO TRANSFERASE 20 U/L (14-36); BILIRUBIN,DIRECT 0.2 mg/dL (0.0-0.4); BILIRUBIN,TOTAL 0.4 mg/dL (0.2-1.3); BLOOD UREA NITROGEN 13 mg/dL (7-20); CALCIUM 9.6 mg/dL (8.4-10.2); CARBON DIOXIDE 29 mmol/L (22-30); CHLORIDE 102 mmol/L (98-107); GLUCOSE 114 mg/dL (75-110); POTASSIUM 4.4 mmol/L (3.6-5.0); SODIUM 140.5 mmol/L (137-145); TOTAL PROTEIN 7.1 g/dL (6.3-8.2)
[2018-12-05 22:13] LABS: ABSOLUTE LYMPHOCYTES# (MANUAL) 1.2 10^3/uL (0.5-4.7); ABSOLUTE MONOCYTES # (MANUAL) 0.5 10^3/uL (0.1-1.4); ABSOLUTE NEUTROPHILS# (MANUAL) 2.8 10^3/uL (1.7-8.2); BASOPHILS % (MANUAL) 0 % (0-2); EOSINOPHILS % (MANUAL) 0 % (0-6); LYMPHOCYTES % (MANUAL) 27 % (13-45); MONOCYTES % (MANUAL) 11 % (3-13); SEGMENTED NEUTROPHILS % (MAN) 62 % (42-78); TOTAL CELLS COUNTED 100
--- NOTE | 2018-12-05 22:14 | RADIOLOGY REPORT (SQ) ---
XR CHEST 2 VIEWS HISTORY: cp cough. COMPARISON: 11/08/2017 FINDINGS: The heart size is normal. The lungs are clear. No pleural effusions or pneumothorax is seen. No acute bony findings. IMPRESSION: No evidence of acute cardiopulmonary disease.
[2018-12-05 22:15] LABS: HELMET CELLS SLIGHT; OVALOCYTES 1+; PLATELET COMMENT ADEQUATE; POIKILOCYTOSIS 1+; TEAR DROP CELLS SLIGHT; TOXIC GRANULATION 1+; TOXIC VACUOLATION PRESENT
[2018-12-06 00:06] LABS: APPEARANCE,URINE SLIGHTLY-CLOUDY; BILIRUBIN,URINE NEGATIVE (NEGATIVE); COLOR,URINE YELLOW; GLUCOSE, URINE NEGATIVE (NEGATIVE); KETONES,URINE NEGATIVE (NEGATIVE); LEUKOCYTE ESTERASE,URINE SMALL (NEGATIVE); NITRITE,URINE NEGATIVE (NEGATIVE); PROTEIN,URINE NEGATIVE (NEGATIVE); URINE SPECIFIC GRAVITY 1.013
[2018-12-06 00:46] VITALS: BP 130/81
== END 2018-12-06 00:46 | disposition home or self-care (01) ==
LOC: ER 19:55
DX: G43.909 Migraine, unspecified, not intractable, without status migrainosus (principal); J02.9 Acute pharyngitis, unspecified; R05 Cough; R11.0 Nausea; M79.10 Myalgia, unspecified site; Z79.899 Other long term (current) drug therapy; E11.9 Type 2 diabetes mellitus without complications; I10 Essential (primary) hypertension
CPT/HCPCS: 99283; 96361; 96374; 96375; 36415; 87070; 87880; 85025; 80053; 81001; 71046; J3490; J1200; J1885; J0780; J7030

== ENCOUNTER 2019-01-07 12:08 | Emergency (ER) | payer MEDICAID ==
[2019-01-07] MEDS ORDERED: ONDANSETRON 4 MG TAB.RAPDIS PO ONE (13:37)
[2019-01-07] MEDS ORDERED: BENZONATATE 100 MG CAPSULE PO ONE (13:37)
--- NOTE | 2019-01-07 13:43 | ER Document Report ---
ED Medical Screen (RME) - General Chief Complaint: Chest Pain Stated Complaint: DIARRHEA,VOMITING,ABDOMINAL PAIN Time Seen by Provider: 01/07/19 13:35 Primary Care Provider: VICKI MAKI FNP-C [Primary Care Provider] - Follow up as needed Notes: This 48-year-old female patient comes emergency room complaining of onset yesterday of diarrhea, nausea and vomiting x2 today, midsternal chest pain which is worse with her dry cough and epigastric pain. She has become hoarse. She complains of some shortness of breath. She does have hypertension diabetes and seizure disorder. She did not get a flu shot. She was seen here just over 1 month ago for almost identical symptoms. I have greeted and performed a rapid initial assessment of this patient. A comprehensive ED assessment and evaluation of the patient, analysis of test results and completion of the medical decision making process will be conducted by additional ED providers. TRAVEL OUTSIDE OF THE [place] IN LAST 30 DAYS: No - Related Data Allergies/Adverse Reactions: venom-wasp [Wasp Venom] Allergy (Severe, Verified 07/19/18 09:53) SWELLING No Known Drug Allergies Allergy (Verified 07/19/18 09:53) Bees Allergy (Severe, Uncoded 07/19/18 09:53) swelling Past Medical History - Social History Chew tobacco use (# tins/day): No Frequency of alcohol use: None Drug Abuse: None - Past Medical History Cardiac Medical History: Reports: Hx Hypertension Pulmonary Medical History: Denies: Hx Tuberculosis Neurological Medical History: Reports: Hx Migraine, Hx Seizures Endocrine Medical History: Reports: Hx Diabetes Mellitus Type 2 Renal/ Medical History: Denies: Hx Peritoneal Dialysis Malignancy Medical History: Reports: Hx Pancreatic Cancer Musculoskeltal Medical History: Reports Hx Arthritis, Reports Hx Musculoskeletal Deformity - Right knee Psychiatric Medical History: Reports: Hx Anxiety, Hx Depression, Hx Schizophrenia Past Surgical History: Reports: Hx Cholecystectomy, Hx Tubal Ligation - Immunizations Hx Diphtheria, Pertussis, Tetanus Vaccination: Yes Physical Exam - Vital signs Vitals: Temp Pulse Resp BP Pulse Ox 97.8 F 72 16 131/80 H 97 01/07/19 12:34 01/07/19 12:34 01/07/19 12:34 01/07/19 12:34 01/07/19 12:34 Course - Vital Signs Vital signs: Temp Pulse Resp BP Pulse Ox 97.8 F 72 16 131/80 H 97 01/07/19 12:34 01/07/19 12:34 01/07/19 12:34 01/07/19 12:34 01/07/19 12:34 Doctor's Discharge - Discharge Referrals: VICKI MAKI, [employer] HELPER-C [Primary Care Provider] - Follow up as needed
[2019-01-07 14:28] LABS: APPEARANCE,URINE SLIGHTLY-CLOUDY; BILIRUBIN,URINE NEGATIVE (NEGATIVE); COLOR,URINE YELLOW; GLUCOSE, URINE NEGATIVE (NEGATIVE); KETONES,URINE NEGATIVE (NEGATIVE); LEUKOCYTE ESTERASE,URINE NEGATIVE (NEGATIVE); NITRITE,URINE NEGATIVE (NEGATIVE); PROTEIN,URINE NEGATIVE (NEGATIVE); URINE SPECIFIC GRAVITY 1.021; UROBILINOGEN,URINE NEGATIVE mg/dL (<2.0)
[2019-01-07 14:34] LABS: HEMATOCRIT 35.9 % (36.0-47.0); HEMOGLOBIN 12.2 g/dL (12.0-15.5); MEAN CORPUSCULAR HEMOGLOBIN 29.3 pg (27.0-33.4); MEAN CORPUSCULAR VOLUME 86 fl (80-97); PLATELET COUNT 184 10^3/uL (150-450); RED BLOOD COUNT 4.15 10^6/uL (3.72-5.28); RED CELL DISTRIBUTION WIDTH 13.3 % (11.5-14.0); WHITE BLOOD COUNT 4.1 10^3/uL (4.0-10.5)
[2019-01-07 14:40] LABS: A TYPE INFLUENZA AG NEGATIVE (NEGATIVE); B INFLUENZA AG NEGATIVE (NEGATIVE)
[2019-01-07 14:43] LABS: ALANINE AMINOTRANSFERASE 25 U/L (9-52); ALBUMIN 3.7 g/dL (3.5-5.0); ALKALINE PHOSPHATASE 53 U/L (38-126); ANION GAP 7 (5-19); ASPARTATE AMINO TRANSFERASE 15 U/L (14-36); BILIRUBIN,DIRECT 0.1 mg/dL (0.0-0.4); BILIRUBIN,TOTAL 0.3 mg/dL (0.2-1.3); BLOOD UREA NITROGEN 12 mg/dL (7-20); CALCIUM 9.4 mg/dL (8.4-10.2); CARBON DIOXIDE 30 mmol/L (22-30); CHLORIDE 104 mmol/L (98-107); CREATINE KINASE 75 U/L (30-135); GLUCOSE 115 mg/dL (75-110); POTASSIUM 4.3 mmol/L (3.6-5.0); SODIUM 141.3 mmol/L (137-145); TOTAL PROTEIN 6.9 g/dL (6.3-8.2)
[2019-01-07 14:52] LABS: CREATINE KINASE MB 0.44 ng/mL (<4.55)
--- NOTE | 2019-01-07 14:52 | ER Document Report ---
Addendum entered and electronically signed by ARTEMIO CERRATO PA-C 01/07/19 18:15: Course - Re-evaluation Re-evalutation: 01/07/19 18:15 Heart Score update of 2 - Vital Signs Vital signs: Temp Pulse Resp BP Pulse Ox 97.8 F 72 12 126/83 H 99 01/07/19 12:34 01/07/19 12:34 01/07/19 18:01 01/07/19 18:01 01/07/19 18:01 - Laboratory Result Diagrams: 01/07/19 14:09 01/07/19 14:09 Laboratory results interpreted by me: 01/07/19 01/07/19 01/07/19 12:41 14:09 14:09 Hct 35.9 L Monocytes % (Manual) 19 H Glucose 115 H Urine Ascorbic Acid 40 H Original Note: ED General - General Chief Complaint: Chest Pain Stated Complaint: DIARRHEA,VOMITING,ABDOMINAL PAIN Time Seen by Provider: 01/07/19 13:35 Primary Care Provider: VICKI MAKI FNP-C [COMMUNITY BASED STAFF] - Follow up as needed TRAVEL OUTSIDE OF THE [place] IN LAST 30 DAYS: No - HPI Notes: Patient is a 48-year-old female with a history of hypertension, seizures, and type 2 diabetes who presents to the emergency department primarily for a work note she called off of work today. Patient states that she has abdominal cramping with watery diarrhea, nausea/vomiting that began last evening. Her last episode of vomiting or diarrhea was this morning. Patient has not noticed any melena or hematochezia. Patient states that she also started having a dry nonproductive cough with nasal congestion/discharge and hoarseness in her voice that began this morning. Patient states that she has left lateral chest pain that is worsened with a cough, and is not normally felt at rest. Patient states that she only feels short of breath when she is coughing. She is able to ambulate without any dyspnea on exertion or worsening symptoms. Patient states that she is urinating normally. Denies any prolonged immobilization, distance travel, recent surgery/trauma, personal cancer history, hormone use, smoking, or previous DVT/PE. Denies any headache, fever, neck pain, sore throat, palpitations, syncope, shortness of breath at rest, wheeze, dyspnea, urinary retention, dysuria, hematuria, or rash. Pt [place] and is exposed to many illnesses. - Related Data Allergies/Adverse Reactions: venom-wasp [Wasp Venom] Allergy (Severe, Verified 07/19/18 09:53) SWELLING No Known Drug Allergies Allergy (Verified 07/19/18 09:53) Bees Allergy (Severe, Uncoded 07/19/18 09:53) swelling Past Medical History - Social History Smoking Status: Never Smoker Chew tobacco use (# tins/day): No Frequency of alcohol use: None Drug Abuse: None Family History: Reviewed & Not Pertinent, DM Patient has suicidal ideation: No Patient has homicidal ideation: No - Past Medical History Cardiac Medical History: Reports: Hx Hypertension Pulmonary Medical History: Denies: Hx Tuberculosis Neurological Medical History: Reports: Hx Migraine, Hx Seizures Endocrine Medical History: Reports: Hx Diabetes Mellitus Type 2 Renal/ Medical History: Denies: Hx Peritoneal Dialysis Malignancy Medical History: Reports: Hx Pancreatic Cancer Musculoskeletal Medical History: Reports Hx Arthritis, Reports Hx Musculoskel etal Deformity - Right knee Psychiatric Medical History: Reports: Hx Anxiety, Hx Depression, Hx Schizophrenia Past Surgical History: Reports: Hx Cholecystectomy, Hx Tubal Ligation - Immunizations Hx Diphtheria, Pertussis, Tetanus Vaccination: Yes Hx Pneumococcal Vaccination: 10/19/00 Review of Systems - Review of Systems -: Yes All other systems reviewed and negative Physical Exam - Vital signs Vitals: Temp Pulse Resp BP Pulse Ox 97.8 F 72 16 131/80 H 97 01/07/19 12:34 01/07/19 12:34 01/07/19 12:34 01/07/19 12:34 01/07/19 12:34 - Notes Notes: PHYSICAL EXAMINATION: GENERAL: Well-appearing, well-nourished and in no acute distress. HEAD: Atraumatic, normocephalic. EYES: Pupils equal round and reactive to light, extraocular movements intact, sclera anicteric, conjunctiva are normal. ENT: Nares patent and with clear discharge. oropharynx clear without exudates. No tonsilar hypertrophy or erythema. No palatine shift or uvular deviation. No airway compromise noted. Moist mucous membranes. NECK: Normal range of motion, supple without lymphadenopathy Chest: + reproducible tenderness to palpation of the left lateral pectoral area and reproducible with arm extension/abduction. LUNGS: Breath sounds clear to auscultation bilaterally and equal. No wheezes rales or rhonchi. Audible dry non-productive cough noted. HEART: Regular rate and rhythm without murmurs, rubs, gallops. ABDOMEN: Soft, nontender, nondistended abdomen. No guarding, no rebound. No masses appreciated. Normal bowel sounds present. No CVA tenderness bilaterally. Musculoskeletal: FROM to passive/active. Strength 5+/5. Angelika neg. No asymmetry to LE's. Extremities: No cyanosis, clubbing, or edema b/l. Peripheral pulses 2+. Capillary refill less than 3 seconds. NEUROLOGICAL: Normal speech, normal gait. PSYCH: Normal mood, normal affect. SKIN: Warm, Dry, normal turgor, no rashes or lesions noted. Course - Re-evaluation Re-evalutation: 01/07/19 18:00 Patient is an afebrile, well-hydrated 48-year-old female who presents to the ED with acute URI (suspect viral) and chest wall pain. Vitals are acceptable without any significant tachycardia, tachypnea, or hypoxia. PE is otherwise unremarkable aside from the reproducible lateral chest wall tenderness to palp and ROM. Patient is nontoxic-appearing and is tolerating p.o. without any difficulties. CBC, CMP, EKG/cardiac enzymes 2, chest x-ray, BNP, UA, influenza are all unremarkable for any acute pathology. Patient has a heart score of 1, Wells score of 0, and is PERC negative. Patient does not have any dyspnea or shortness of breath. Patient's presentation and symptomatology creates low suspicion for ACS, PE, pneumothorax, pericarditis, dissection, respiratory compromise, severe dehydration, sepsis, meningitis, or other systemic emergent condition at this time. Patient is aware that this condition can change from initial presentation and she needs to monitor symptoms closely and seek medical attention for any acute changes. Recommend conservative measures for symptoms. Recheck with your PCM in 2-3 days. Return to the ED with any worsening/concerning symptoms otherwise as reviewed in discharge. Patient is in agreement. - Vital Signs Vital signs: Temp Pulse Resp BP Pulse Ox 97.8 F 72 16 142/95 H 100 01/07/19 12:34 01/07/19 12:34 01/07/19 16:01 01/07/19 16:01 01/07/19 16:01 - Laboratory Result Diagrams: 01/07/19 14:09 01/07/19 14:09 Laboratory results interpreted by me: 01/07/19 01/07/19 01/07/19 12:41 14:09 14:09 Hct 35.9 L Monocytes % (Manual) 19 H Glucose 115 H Urine Ascorbic Acid 40 H Discharge - Discharge Clinical Impression: Acute URI, Chest wall pain Condition: Stable Disposition: HOME, SELF-CARE Instructions: Chest Wall Pain ([facility]), Upper Respiratory Illness ([facility]) Additional Instructions: Maintain adequate fluid and food intake Take home medications as directed [id number] cold medicine as needed Wash hands frequently Wear a mask when coughing healthy diet/exercise Monitor blood pressure daily and keep a log Monitor symptoms for any acute changes Recheck with your PCM in 2-3 days Return to the ED with any worsening symptoms and/or development of fever, heada negra, chest pain, palpitations, syncope, shortness of breath, trouble breathing, abdominal pain, n/v/d, blood in stool/urine, loss of control of bowel/bladder, urinary retention, muscle weakness/paralysis, numbness/tingling, or other worsening symptoms that are concerning to you. Forms: Elevated Blood Pressure Referrals: VICKI MAKI, KELSEY [COMMUNITY BASED STAFF] - Follow up as needed
[2019-01-07 14:53] LABS: TROPONIN I 0.037 ng/mL
--- NOTE | 2019-01-07 15:06 | RADIOLOGY REPORT (SQ) ---
EXAM DESCRIPTION: CHEST SINGLE VIEW COMPLETED DATE/TIME: 01/07/2019 3:02 pm REASON FOR STUDY: cp, cough COMPARISON: 12/05/2018 EXAM PARAMETERS: NUMBER OF VIEWS: One view. TECHNIQUE: Single frontal radiographic view of the chest acquired. RADIATION DOSE: NA LIMITATIONS: None. FINDINGS: LUNGS AND PLEURA: No opacities, masses or pneumothorax. No pleural effusion. MEDIASTINUM AND HILAR STRUCTURES: No masses. Contour normal. HEART AND VASCULAR STRUCTURES: Heart normal in size. Normal vasculature. BONES: No acute findings. HARDWARE: None in the chest. OTHER: No other significant finding. IMPRESSION: NO ACUTE RADIOGRAPHIC FINDING IN THE CHEST. TECHNICAL DOCUMENTATION: JOB ID: [id number] LS9- All Rights Reserved Reading location - IP/workstation name: [email or web address]
[2019-01-07 15:14] LABS: ABSOLUTE LYMPHOCYTES# (MANUAL) 1.3 10^3/uL (0.5-4.7); ABSOLUTE MONOCYTES # (MANUAL) 0.8 10^3/uL (0.1-1.4); ABSOLUTE NEUTROPHILS# (MANUAL) 1.8 10^3/uL (1.7-8.2); BASOPHILS % (MANUAL) 1 % (0-2); EOSINOPHILS % (MANUAL) 3 % (0-6); LYMPHOCYTES % (MANUAL) 32 % (13-45); MONOCYTES % (MANUAL) 19 % (3-13); SEGMENTED NEUTROPHILS % (MAN) 45 % (42-78); TOTAL CELLS COUNTED 100
[2019-01-07 15:16] LABS: PLATELET COMMENT ADEQUATE; RBC MORPHOLOGY COMMENT NORMO-CYTIC/CHROMIC
[2019-01-07 18:08] VITALS: BP 126/83
--- NOTE | 2019-01-07 23:02 | EKG REPORT ---
SEVERITY:- ABNORMAL ECG - SINUS RHYTHM PROBABLE LEFT VENTRICULAR HYPERTROPHY : Confirmed by: Demi Wan 07-Jan-2019 23:01:51
== END 2019-01-07 18:19 | disposition home or self-care (01) ==
LOC: ER 12:08
DX: J06.9 Acute upper respiratory infection, unspecified (principal); R07.89 Other chest pain; R11.2 Nausea with vomiting, unspecified; R19.7 Diarrhea, unspecified; R10.9 Unspecified abdominal pain; I10 Essential (primary) hypertension; E11.9 Type 2 diabetes mellitus without complications; R05 Cough; R09.81 Nasal congestion; R49.0 Dysphonia; R07.9 Chest pain, unspecified; Z91.038 Other insect allergy status; Z91.030 Bee allergy status; Z90.49 Acquired absence of other specified parts of digestive tract; Z98.51 Tubal ligation status
CPT/HCPCS: 93005; 99284; 36415; 82553; 82550; 85025; 80053; 81001; 84484; 87804; 71045; 93010; J3490; S0119

== ENCOUNTER 2019-01-17 05:58 | Emergency (ER) | payer MEDICAID, OTHER ==
[2019-01-17] MEDS ORDERED: DIPHENHYDRAMINE HCL 50 MG/ML VIAL IV ONE (06:46)
[2019-01-17] MEDS ORDERED: PROCHLORPERAZINE EDISYLATE INJ 10 MG/2 ML VIAL IV ONE (06:46)
[2019-01-17] MEDS ORDERED: KETOROLAC TROMETHAMINE INJ/PF 30 MG/1 ML SDV IV ONE (06:46)
[2019-01-17] MEDS ORDERED: NORMAL SALINE 1000 ML 1,000 ML IV ONE (06:46)
[2019-01-17 08:28] VITALS: BP 146/77
--- NOTE | 2019-01-17 14:01 | ER Document Report ---
Entered by SACHIN BRAMBILA SCRIBE 01/17/19 0700 Acting as scribe for:ASAEL WILLINGHAM MD ED Headache - General Chief Complaint: Headache Stated Complaint: HEADACHE Time Seen by Provider: 01/17/19 06:24 Primary Care Provider: RAND LLAMAS MD [Primary Care Provider] - Follow up as needed Mode of Arrival: Ambulatory Information source: Patient Notes: Patient is a 48 year old female with HTN, HLD, migraines, seizures, type 2 diabetes, schizophrenia presents to the emergency department complaining of a headache onset around 0400. Patient states she woke up to a frontal headache. She also complains of photophobia. TRAVEL OUTSIDE OF THE [place] IN LAST 30 DAYS: No - Related Data Allergies/Adverse Reactions: venom-wasp [Wasp Venom] Allergy (Severe, Verified 01/17/19 06:20) SWELLING Bees Allergy (Severe, Uncoded 01/17/19 06:20) swelling Past Medical History - General Information source: Patient - Social History Smoking Status: Never Smoker Frequency of alcohol use: None Drug Abuse: None Family History: Reviewed & Not Pertinent, DM Patient has suicidal ideation: No Patient has homicidal ideation: No - Past Medical History Cardiac Medical History: Reports: Hx Hypertension Neurological Medical History: Reports: Hx Migraine, Hx Seizures Endocrine Medical History: Reports: Hx Diabetes Mellitus Type 2 Musculoskeletal Medical History: Reports Hx Arthritis, Reports Hx Musculoskeletal Deformity - Right knee Psychiatric Medical History: Reports: Hx Anxiety, Hx Depression, Hx Schizophrenia Past Surgical History: Reports: Hx Cholecystectomy, Hx Tubal Ligation - Immunizations Hx Diphtheria, Pertussis, Tetanus Vaccination: Yes Hx Pneumococcal Vaccination: 10/19/00 Review of Systems - Review of Systems Constitutional: No symptoms reported EENT: No symptoms reported Cardiovascular: No symptoms reported Respiratory: No symptoms reported Gastrointestinal: No symptoms reported Genitourinary: No symptoms reported Female Genitourinary: No symptoms reported Musculoskeletal: No symptoms reported Skin: No symptoms reported Hematologic/Lymphatic: No symptoms reported Neurological/Psychological: See HPI, Headaches -: Yes All other systems reviewed and negative Physical Exam - Vital signs Vitals: Temp Pulse Resp BP Pulse Ox 97.6 F 70 16 144/85 H 95 01/17/19 06:03 01/17/19 06:03 01/17/19 06:03 01/17/19 06:03 01/17/19 06:03 - Notes Notes: GENERAL: Alert, interacts well. No acute distress. HEAD: Normocephalic, atraumatic. Forehead and temporal muscles tender to palpation, L>R. EYES: Pupils equal, round, and reactive to light. Extraocular movements intact. ENT: Oral mucosa moist, tongue midline. NECK: Full range of motion. Supple. Trachea midline. Posterior cervical muscles tender to palpation, L>R. LUNGS: Clear to auscultation bilaterally, no wheezes, rales, or rhonchi. No respiratory distress. HEART: Regular rate and rhythm. No murmurs, gallops, or rubs. ABDOMEN: Soft, non-tender. Non-distended. Bowel sounds present in all 4 quadrants. No guarding, rigidity, or rebound. EXTREMITIES: Moves all 4 extremities spontaneously. NEUROLOGICAL: Alert and oriented x3. Normal speech. PSYCH: Normal affect, normal mood. SKIN: Warm, dry, normal turgor. No rashes or lesions noted. Course - Re-evaluation Re-evalutation: 01/17/19 08:13 Patient was found to be sound asleep and snoring. She is awake and for reexam, she states she feels much better and her headache is gone. - Vital Signs Vital signs: Temp Pulse Resp BP Pulse Ox 97.6 F 70 16 144/85 H 95 01/17/19 06:03 01/17/19 06:03 01/17/19 06:03 01/17/19 06:03 01/17/19 06:03 Discharge - Discharge Clinical Impression: Muscle contraction headache Condition: Stable Disposition: HOME, SELF-CARE Additional Instructions: Tension Headache Your problem has been diagnosed as muscle tension headache. This very common type of headache occurs because of tightness in the muscles of the head and neck. The cause may be neck or jaw joint problems, but most commonly the cause is emotional stress. The headache may last hours or days. The treatment of uncomplicated tension headaches is rest and pain medication. Often, the newer antiinflammatory pain medications are prescribed, as these also decrease the irritability of the painful tissues. Muscle relaxers, cold packs, or warm packs are sometimes helpful. Anti-anxiety medication or narcotics are sometimes needed temporarily, but are best avoided in the long run. Your doctor has evaluated your headache problem, and finds no evidence of a serious health problem as a cause for the headache. If your headache becomes more severe, or if new symptoms develop (such as fever, stiff neck, vomiting, or decreasing alertness) you should be re-examined by the physician. Take Tylenol and ibuprofen today for headache if needed. Get plenty of rest and sleep. Follow-up with your doctor if not improving. RETURN TO THE EMERGENCY ROOM IF ANY NEW OR WORSENING SYMPTOMS. Forms: Return to Work Referrals: RAND LLAMAS MD [Primary Care Provider] - Follow up as needed Scribe Attestation: 01/17/19 08:08 I personally performed the services described in the documentation, reviewed and edited the documentation which was dictated to the scribe in my presence, and it accurately records my words and actions. I personally performed the services described in the documentation, reviewed and edited the documentation which was dictated to the scribe in my presence, and it accurately records my words and actions.
== END 2019-01-17 08:28 | disposition home or self-care (01) ==
LOC: ER 05:58
DX: G44.89 Other headache syndrome (principal); I10 Essential (primary) hypertension; E11.9 Type 2 diabetes mellitus without complications; Z90.49 Acquired absence of other specified parts of digestive tract; Z98.51 Tubal ligation status
CPT/HCPCS: 99283; 96361; 96374; 96375; J1200; J1885; J0780; J7030

== ENCOUNTER 2019-07-24 05:07 | Emergency (ER) | payer BC, MEDICAID ==
--- NOTE | 2019-07-24 05:41 | ER Document Report ---
HPI - HPI Patient complains to provider of: left ankle pain Time Seen by Provider: 07/24/19 05:27 Onset: Other - since october Onset/Duration: Persistent Severity: Severe Pain Level: 5 Context: 49-year-old female presents emergency department with complaints of left ankle pain. Reports she hurt her ankle in October tripped over something at work. 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 She ran out of her medication a couple weeks ago and the swelling has returned. Denies recent injury. She is here because she wants to know what is wrong with her ankle. Reports she is no longer on Workmen's Comp. No other complaints such as fever vomiting diarrhea. Associated Symptoms: None Exacerbated by: Walking Relieved by: Denies Similar symptoms previously: Yes Recently seen / treated by doctor: No - REPRODUCTIVE Reproductive: DENIES: : - MUSCULOSKELETAL Musculoskeletal: REPORTS: Extremity pain Past Medical History - General Information source: Patient - Social History Smoking Status: Never Smoker Chew tobacco use (# tins/day): No Frequency of alcohol use: None Drug Abuse: None Family History: Reviewed & Not Pertinent, DM Patient has suicidal ideation: No Patient has homicidal ideation: No - Past Medical History Cardiac Medical History: Reports: Hx Hypertension Pulmonary Medical History: Denies: Hx Tuberculosis Neurological Medical History: Reports: Hx Migraine, Hx Seizures Endocrine Medical History: Reports: Hx Diabetes Mellitus Type 2 Renal/ Medical History: Denies: Hx Peritoneal Dialysis Malignancy Medical History: Reports: Hx Pancreatic Cancer Musculoskeletal Medical History: Reports Hx Arthritis, Reports Hx Musculoskeletal Deformity - Right knee Psychiatric Medical History: Reports: Hx Anxiety, Hx Depression, Hx Schizophrenia Past Surgical History: Reports: Hx Cholecystectomy, Hx Tubal Ligation - Immunizations Hx Diphtheria, Pertussis, Tetanus Vaccination: Yes Hx Pneumococcal Vaccination: 10/19/00 Vertical Provider Document - CONSTITUTIONAL Agree With Documented VS: Yes Exam Limitations: No Limitations General Appearance: WD/WN, No Apparent Distress - Patient seems irritated - INFECTION CONTROL TRAVEL OUTSIDE OF THE [place] IN LAST 30 DAYS: No - HEENT HEENT: Atraumatic, Normocephalic - NECK Neck: Supple - RESPIRATORY Respiratory: No Respiratory Distress - CARDIOVASCULAR Cardiovascular: Regular Rate - MUSCULOSKELETAL/EXTREMETIES Musculoskeletal/Extremeties: MAEW, FROM, Tender - Left ankle tender medially to palpation slight swelling good pedal pulse no obvious deformity - NEURO Level of Consciousness: Awake, Alert, Appropriate Motor/Sensory: No Motor Deficit - DERM Integumentary: Warm, Dry Course - Re-evaluation Re-evalutation: 07/24/19 06:44 49-year-old female presents to the emergency department with complaints of chronic left ankle pain. She reports she recently ran out of her medication and swelling has returned. Denies recent trauma. 07/24/19 07:07 xray neg. patient informed of results. Instructed to follow-up with her primary care provider Dr. degroot for re-check and evaluation and to discuss plan of care. Ankle X-Ray 07/24/19 05:38 IMPRESSION: No acute osseous abnormality copyright 2010 [employer]- All Rights Reserved - Vital Signs Vital signs: Temp Pulse Resp BP Pulse Ox 97.7 F 83 18 160/103 H 99 07/24/19 05:13 07/24/19 05:13 07/24/19 05:13 07/24/19 05:13 07/24/19 05:13 - Diagnostic Test Radiology reviewed: Image reviewed, Reports reviewed Discharge - Discharge Clinical Impression: Left ankle pain Qualifiers: Chronicity: chronic Qualified Code(s): M25.572 - Pain in left ankle and joints of left foot Condition: Stable Disposition: HOME, SELF-CARE Instructions: Ice & Elevation ([facility]) Additional Instructions: *You have been evaluated for chronic ankle pain *Rest/Ice/Elevate your ankle *Follow up with your primary care provider for evaluation and for referral to orthopedics as indicated *Take medication as prescribed *Return to ED for worsening condition, changes, needs Prescriptions: Celecoxib [Celebrex 200 mg Capsule] 200 mg PO Q12 #20 capsule Forms: Elevated Blood Pressure Referrals: NINOSKA DEGROOT DPM [ACTIVE STAFF] - Follow up in 3-5 days
--- NOTE | 2019-07-24 06:51 | RADIOLOGY REPORT (SQ) ---
EXAM DESCRIPTION: XR ANKLE 3 OR MORE VIEWS COMPLETED DATE/TME: 07/24/2019 05:38 CLINICAL HISTORY: 49 years, Female, pain swelling COMPARISON: None. NUMBER OF VIEWS: 3 TECHNIQUE: 3 view left ankle LIMITATIONS: None. FINDINGS: Mild soft tissue swelling. Negative for acute fracture or dislocation. Tiny calcaneal spurs IMPRESSION: No acute osseous abnormality copyright 2010 [employer]- All Rights Reserved
[2019-07-24 06:57] VITALS: BP 130/86
== END 2019-07-24 06:58 | disposition home or self-care (01) ==
LOC: ER 05:07
DX: G89.29 Other chronic pain (principal); M25.572 Pain in left ankle and joints of left foot; I10 Essential (primary) hypertension; E11.9 Type 2 diabetes mellitus without complications; Z90.49 Acquired absence of other specified parts of digestive tract; Z98.51 Tubal ligation status; Z85.07 Personal history of malignant neoplasm of pancreas
CPT/HCPCS: 99283

== ENCOUNTER 2019-08-12 20:41 | Emergency (ER) | payer BC, MEDICAID ==
[2019-08-12] MEDS ORDERED: LIDOCAINE 2% VISCOUS SOLN 20 ML UDCUP PO ONE (21:14)
[2019-08-12] MEDS ORDERED: METOCLOPRAMIDE HCL ORAL SOLN 10 MG/10 ML UDCUP PO ONE (21:14)
[2019-08-12] MEDS ORDERED: MAG HYDROX/AL HYDROX/SIMETH SUSP 30 ML UDCUP PO ONE (21:14)
[2019-08-12] MEDS ORDERED: ASPIRIN 81 MG TABLET, CHEWABLE PO ONE (21:14)
--- NOTE | 2019-08-12 21:16 | ER Document Report ---
ED Medical Screen (RME) - General Chief Complaint: Chest Pain Stated Complaint: CHEST PAIN Time Seen by Provider: 08/12/19 21:08 Primary Care Provider: RAND LLAMAS MD [Primary Care Provider] - Follow up as needed Notes: 49-year-old female presents the emergency department chief complaint of chest pain over her anterior chest. She said it started yesterday, is constant, it is a burning sensation and has a tingling sensation. She says she has had some indigestion and states that she never gets indigestion. Denies any associated nausea or vomiting, denies diaphoresis but states that she had a "hot sweats "yesterday, no dyspnea on exertion, no positive family history, patient is not a smoker. No other associated symptoms. Exam: Well-appearing in no acute distress, lungs clear to auscultation in all turcios, regular cardiac rate and rhythm, S1-S2 heard with no murmurs I have greeted and performed a rapid initial assessment of this patient. A comprehensive ED assessment and evaluation of the patient, analysis of test results and completion of medical decision making process will be conducted by an additional ED providers. TRAVEL OUTSIDE OF THE [place] IN LAST 30 DAYS: No - Related Data Allergies/Adverse Reactions: venom-wasp [Wasp Venom] Allergy (Severe, Verified 08/12/19 21:05) SWELLING Bees Allergy (Severe, Uncoded 08/12/19 21:05) swelling Past Medical History - Social History Frequency of alcohol use: None Drug Abuse: None - Past Medical History Cardiac Medical History: Reports: Hx Hypertension Pulmonary Medical History: Denies: Hx Tuberculosis Neurological Medical History: Reports: Hx Migraine, Hx Seizures Endocrine Medical History: Reports: Hx Diabetes Mellitus Type 2 Renal/ Medical History: Denies: Hx Peritoneal Dialysis Malignancy Medical History: Reports: Hx Pancreatic Cancer Musculoskeltal Medical History: Reports Hx Arthritis, Reports Hx Musculoskeletal Deformity - Right knee Psychiatric Medical History: Reports: Hx Anxiety, Hx Depression, Hx Schizophrenia Past Surgical History: Reports: Hx Cholecystectomy, Hx Tubal Ligation - Immunizations Hx Diphtheria, Pertussis, Tetanus Vaccination: Yes Physical Exam - Vital signs Vitals: Temp Pulse Resp BP Pulse Ox 97.6 F 78 16 158/83 H 98 08/12/19 20:57 08/12/19 20:57 08/12/19 20:57 08/12/19 20:57 08/12/19 20:57 Course - Vital Signs Vital signs: Temp Pulse Resp BP Pulse Ox 97.6 F 78 16 158/83 H 98 08/12/19 20:57 08/12/19 20:57 08/12/19 20:57 08/12/19 20:57 08/12/19 20:57 Doctor's Discharge - Discharge Referrals: RAND LLAMAS MD [Primary Care Provider] - Follow up as needed
[2019-08-12 21:46] LABS: ABSOLUTE EOSINOPHILS # (AUTO) 0.2 10^3/uL (0.0-0.6); ABSOLUTE LYMPHOCYTES (AUTO) 1.7 10^3/uL (0.5-4.7); ABSOLUTE MONOCYTES (AUTO) 0.6 10^3/uL (0.1-1.4); ABSOLUTE NEUT (AUTO) 1.2 10^3/uL (1.7-8.2); BASOPHILS % (AUTO) 0.7 % (0-2); EOSINOPHILS % (AUTO) 5.6 % (0-6); HEMATOCRIT 35.7 % (36.0-47.0); HEMOGLOBIN 11.6 g/dL (12.0-15.5); LYMPHOCYTES % (AUTO) 45.9 % (13-45); MEAN CORPUSCULAR HEMOGLOBIN 28.2 pg (27.0-33.4); MEAN CORPUSCULAR HGB CONC 32.6 g/dL (32.0-36.0); MEAN CORPUSCULAR VOLUME 86 fl (80-97); MONOCYTES % (AUTO) 16.3 % (3-13); PLATELET COUNT 222 10^3/uL (150-450); RED BLOOD COUNT 4.13 10^6/uL (3.72-5.28); RED CELL DISTRIBUTION WIDTH 13.9 % (11.5-14.0); SEGMENTED NEUTROPHILS % (AUTO) 31.5 % (42-78); TOTAL CELLS COUNTED % (AUTO) 100 %; WHITE BLOOD COUNT 3.8 10^3/uL (4.0-10.5)
[2019-08-12 21:57] LABS: ALBUMIN 4.1 g/dL (3.5-5.0); ALKALINE PHOSPHATASE 52 U/L (38-126); ANION GAP 7 (5-19); ASPARTATE AMINO TRANSFERASE 17 U/L (14-36); BILIRUBIN,DIRECT 0.1 mg/dL (0.0-0.4); BILIRUBIN,TOTAL 0.2 mg/dL (0.2-1.3); BLOOD UREA NITROGEN 16 mg/dL (7-20); CALCIUM 9.7 mg/dL (8.4-10.2); CARBON DIOXIDE 30 mmol/L (22-30); CHLORIDE 106 mmol/L (98-107); GLUCOSE 99 mg/dL (75-110); POTASSIUM 4.8 mmol/L (3.6-5.0); TOTAL PROTEIN 7.4 g/dL (6.3-8.2)
--- NOTE | 2019-08-12 22:53 | ER Document Report ---
ED General - General Chief Complaint: Chest Pain Stated Complaint: CHEST PAIN Time Seen by Provider: 08/12/19 21:08 Primary Care Provider: RAND LLAMAS MD [Primary Care Provider] - Follow up as needed Notes: Patient is a 49-year-old female that comes emergency department for chief complaint of symptoms since last night including discomfort in her upper abdomen and into the chest with pinching sensation, burning sensation, and even itching sensation at time. She states when it gets worse it makes her cough and she has had multiple episodes of belching. She denies nausea or vomiting. She denies fever/chills, difficulty breathing. Patient states that she was started on Celebrex for her left ankle swelling and she has been taking this for a month now. She denies any new medications. She has never had an endoscopy. Past medical history of cholecystectomy, hypertension, seizures, denies any cardiovas cular history. She denies smoking, alcohol, recreational drugs. TRAVEL OUTSIDE OF THE [place] IN LAST 30 DAYS: No - Related Data Allergies/Adverse Reactions: venom-wasp [Wasp Venom] Allergy (Severe, Verified 08/12/19 21:05) SWELLING Bees Allergy (Severe, Uncoded 08/12/19 21:05) swelling Past Medical History - General Information source: Patient - Social History Smoking Status: Never Smoker Frequency of alcohol use: None Drug Abuse: None Lives with: Family Family History: Reviewed & Not Pertinent, DM Patient has suicidal ideation: No Patient has homicidal ideation: No - Past Medical History Cardiac Medical History: Reports: Hx Hypertension Pulmonary Medical History: Denies: Hx Tuberculosis Neurological Medical History: Reports: Hx Migraine, Hx Seizures Endocrine Medical History: Reports: Hx Diabetes Mellitus Type 2 Renal/ Medical History: Denies: Hx Peritoneal Dialysis Malignancy Medical History: Reports: Hx Pancreatic Cancer Musculoskeletal Medical History: Reports Hx Arthritis, Reports Hx Musculoskeletal Deformity - Right knee Psychiatric Medical History: Reports: Hx Anxiety, Hx Depression, Hx Schizophrenia Past Surgical History: Reports: Hx Cholecystectomy, Hx Tubal Ligation - Immunizations Hx Diphtheria, Pertussis, Tetanus Vaccination: Yes Hx Pneumococcal Vaccination: 10/19/00 Review of Systems - Review of Systems Constitutional: No symptoms reported EENT: No symptoms reported Cardiovascular: See HPI Respiratory: No symptoms reported Gastrointestinal: See HPI Genitourinary: No symptoms reported Female Genitourinary: No symptoms reported Musculoskeletal: No symptoms reported Skin: No symptoms reported Hematologic/Lymphatic: No symptoms reported Neurological/Psychological: No symptoms reported Physical Exam - Vital signs Vitals: Temp Pulse Resp BP Pulse Ox 97.6 F 78 16 158/83 H 98 08/12/19 20:57 08/12/19 20:57 08/12/19 20:57 08/12/19 20:57 08/12/19 20:57 Course - Re-evaluation Re-evalutation: Patient does have some epigastric tenderness on exam, she reports pinching, burning, belching symptoms, these symptoms completely resolved after GI cocktail. EKG unremarkable, chest X unremarkable, 2 sets of negative troponins, unremarkable lipase, unremarkable laboratory work-up. I very strongly suspect a upper gastrointestinal component. Patient has been taking Celebrex and this is her new medication. I discussed this with her. I discussed precautions in regards to this, negative work-up, treatment recommendations at home, follow-up, and return precautions in detail with patient and . They state appreciation and agreement with plan. - Vital Signs Vital signs: Temp Pulse Resp BP Pulse Ox 98.4 F 78 14 154/92 H 95 08/13/19 02:01 08/12/19 20:57 08/13/19 02:01 08/13/19 02:01 08/13/19 02:01 - Laboratory Result Diagrams: 08/12/19 21:30 08/12/19 21:30 Laboratory results interpreted by me: 08/12/19 21:30 WBC 3.8 L Hgb 11.6 L Hct 35.7 L Lymph % (Auto) 45.9 H [place] % (Auto) 16.3 H Absolute Neuts (auto) 1.2 L Seg Neutrophils % 31.5 L - EKG Interpretation by Me Additional EKG results interpreted by me: Sinus rhythm at a rate of 64, first-degree heart block with TX interval of 220, QTC of 442. No T wave inversions or ST segment changes in consecutive leads. Left axis deviation. There is no significant change from previous EKG. Discharge - Discharge Clinical Impression: Epigastric pain Chest pain Qualifiers: Chest pain type: unspecified Qualified Code(s): R07.9 - Chest pain, unspecified Condition: Stable Disposition: HOME, SELF-CARE Additional Instructions: Your heart testing is normal. Your symptoms are very suggestive of gastritis and inflammation of the upper gastrointestinal tract. This is probably worsened because you have been taking Celebrex. Recommend only taking Celebrex with food and I also recommend taking the medications as prescribed. You may also need to stop the Celebrex in the future. Follow-up with primary care for additional management. Return if you worsen including vomiting, severe worsening pain, vomiting blood, black stools, fever, or any other concerning or worsening symptoms. Prescriptions: Sucralfate [Carafate 1 gm Tablet] 1 gm PO QID #20 tablet Famotidine [Pepcid 20 mg Tablet] 20 mg PO BID #20 tablet Forms: Return to Work Referrals: RAND LLAMAS MD [Primary Care Provider] - Follow up as needed
--- NOTE | 2019-08-12 23:24 | RADIOLOGY REPORT (SQ) ---
EXAM DESCRIPTION: [facility]: XR CHEST 1 VIEW CLINICAL HISTORY: 49 years Female, chest pain COMPARISON: 01/07/2019 FINDINGS: Lungs are clear, with no focal infiltrate, pneumothorax, or pleural effusion. Mediastinum is within normal limits for this positioning. Bony structures are unremarkable. IMPRESSION: 1. No acute pulmonary findings.
[2019-08-13 02:15] VITALS: BP 154/92
--- NOTE | 2019-08-13 13:07 | EKG REPORT ---
SEVERITY:- ABNORMAL ECG - SINUS RHYTHM FIRST DEGREE AV BLOCK LEFT VENTRICULAR HYPERTROPHY ANTERIOR Q WAVES, POSSIBLY DUE TO LVH : Confirmed by: Genia Bright MD 13-Aug-2019 13:06:47
== END 2019-08-13 02:15 | disposition home or self-care (01) ==
LOC: ER 20:41
DX: R07.9 Chest pain, unspecified (principal); R10.13 Epigastric pain; R10.816 Epigastric abdominal tenderness; L29.9 Pruritus, unspecified; R05 Cough; R14.2 Eructation; I44.0 Atrioventricular block, first degree; I10 Essential (primary) hypertension; E11.9 Type 2 diabetes mellitus without complications; M25.472 Effusion, left ankle; Z79.1 Long term (current) use of non-steroidal anti-inflammatories (NSAID); Z90.49 Acquired absence of other specified parts of digestive tract; Z91.038 Other insect allergy status; Z91.030 Bee allergy status; Z85.07 Personal history of malignant neoplasm of pancreas
CPT/HCPCS: 93005; 99285; 36415; 83690; 85025; 80053; 84484; 71045; 93010; J3490

== ENCOUNTER → 2019-08-17 | Outpatient (CLI) | payer BC, MEDICAID ==
--- NOTE | 2019-08-17 14:25 | RADIOLOGY REPORT (SQ) ---
EXAM DESCRIPTION: MRI LT LOWER EXTREMITY COMBO COMPLETED DATE/TIME: 08/17/2019 1:53 pm REASON FOR STUDY: M25.572 PAIN IN LEFT ANKLE AND JOINTS OF LEFT FOOT M25.572 PAIN IN LEFT ANKLE AND JOINTS OF LEFT FOOT COMPARISON: Radiographs 07/24/2019 TECHNIQUE: Multiplanar imaging of the left ankle to include T1-weighted, postcontrast T1-weighted, a nd T2-weighted images. CONTRAST TYPE AND DOSE: 15 mL Dotarem. RENAL FUNCTION: Not indicated. ACR Type II contrast agent associated with few, if any, unconfounded cases of NSF LIMITATIONS: None. FINDINGS: BONE MARROW: No suggestion of occult fracture or significant marrow edema. No large cysts or erosions. No talar dome lesions. Mild pes planus. SOFT TISSUES: No drainable fluid collections or gross soft tissue mass. No overt ligament or tendon disruption. Note is made of posterior tibialis tenosynovitis. Mild ankle joint effusion. Suspect s inus tarsi syndrome. OTHER: No other significant finding. IMPRESSION: 1. Pes planus. 2. Posterior tibialis tenosynovitis. 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 TECHNICAL DOCUMENTATION: JOB ID: [id number] [employer]- All Rights Reserved Reading location - IP/workstation name: [email or web address]
== END ==
LOC: RAD 12:15
PROVIDERS: ATTEND Podiatrist Foot Surgery
DX: M21.42 Flat foot [pes planus] (acquired), left foot (principal); M65.862 Other synovitis and tenosynovitis, left lower leg; M25.572 Pain in left ankle and joints of left foot
CPT/HCPCS: 82565; 73720; A9576

== ENCOUNTER 2019-09-30 03:25 | Emergency (ER) | payer BC, MEDICAID ==
--- NOTE | 2019-09-30 04:44 | ER Document Report ---
ED ENT - General Chief Complaint: Sore Throat Stated Complaint: SICK Time Seen by Provider: 09/30/19 04:17 Primary Care Provider: RAND LLAMAS MD [Primary Care Provider] - Follow up in 3-5 days Notes: 49-year-old female presents with sore throat and productive cough with phlegm that started yesterday. Patient denies coughing up any blood. Patient states her son is sick with similar symptoms. Patient also states that her voice has become hoarse. Patient also states she has associated "hot and cold flashes." Patient denies any chest pain, dyspnea, nausea/vomiting/diarrhea. TRAVEL OUTSIDE OF THE [place] IN LAST 30 DAYS: No - Related Data Allergies/Adverse Reactions: venom-wasp [Wasp Venom] Allergy (Severe, Verified 08/12/19 21:05) SWELLING Bees Allergy (Severe, Uncoded 08/12/19 21:05) swelling Home Medications: depakote. mobic Past Medical History - Social History Smoking Status: Never Smoker Family History: Reviewed & Not Pertinent, DM Patient has suicidal ideation: No Patient has homicidal ideation: No - Past Medical History Cardiac Medical History: Reports: Hx Hypertension Pulmonary Medical History: Denies: Hx Tuberculosis Neurological Medical History: Reports: Hx Migraine, Hx Seizures Endocrine Medical History: Reports: Hx Diabetes Mellitus Type 2 Renal/ Medical History: Denies: Hx Peritoneal Dialysis Malignancy Medical History: Reports: Hx Pancreatic Cancer Musculoskeletal Medical History: Reports Hx Arthritis, Reports Hx Musculoskeletal Deformity - Right knee Psychiatric Medical History: Reports: Hx Anxiety, Hx Depression, Hx Schizophrenia Past Surgical History: Reports: Hx Cholecystectomy, Hx Tubal Ligation - Immunizations Hx Diphtheria, Pertussis, Tetanus Vaccination: Yes Hx Pneumococcal Vaccination: 10/19/00 Review of Systems - Review of Systems Notes: Constitutional: Negative for fever. HENT: Positive for sore throat. Eyes: Negative for visual changes. Cardiovascular: Negative for chest pain. Respiratory: Positive for cough. Negative for shortness of breath. Gastrointestinal: Negative for abdominal pain, vomiting or diarrhea. Genitourinary: Negative for dysuria. Musculoskeletal: Negative for back pain. Skin: Negative for rash. Neurological: Negative for headaches, weakness or numbness. 10 point ROS negative except as marked above and in HPI. Physical Exam - Vital signs Vitals: Temp Pulse Resp BP Pulse Ox 98.6 F 96 18 141/115 H 98 09/30/19 03:32 09/30/19 03:32 09/30/19 03:32 09/30/19 03:32 09/30/19 03:32 - Notes Notes: GENERAL: Well-appearing, well-nourished and in no acute distress. HEAD: Atraumatic, normocephalic. EYES: Pupils equal round and reactive to light, extraocular movements intact, sclera anicteric, conjunctiva are normal. ENT: TMs normal, nares patent, oropharynx clear without exudates. Uvula midline without edema. No SAILING OFFICER. No muffled voice. Patient's voice is hoarse. No trismus. Moist mucous membranes. NECK: Normal range of motion, supple without lymphadenopathy or JVD. LUNGS: Breath sounds clear to auscultation bilaterally and equal. No wheezes rales or rhonchi. HEART: Regular rate and rhythm without murmurs, rubs or gallops. ABDOMEN: Soft, nontender. No guarding, no rebound. No masses appreciated. EXTREMITIES: Normal range of motion, no pitting or edema. No clubbing or c yanosis. NEUROLOGICAL: Cranial nerves II through XII grossly intact. Normal speech, normal gait. PSYCH: Normal mood, normal affect. SKIN: Warm, Dry, normal turgor, no rashes or lesions noted. Course - Re-evaluation Re-evalutation: 09/30/19 49-year-old female presents with productive cough with mucus and sore throat. Patient is nontoxic, well-appearing. Uvula is midline without edema. No SAILING OFFICER. No muffled voice. No trismus. No tonsillar hypertrophy. No exudates. No erythema. Ears are clear bilaterally. Rapid strep was positive. Patient will be discharged home with Penicillin VK and jaylen griffin. Discussed all results with pt. Strict return precautions given. Patient given follow-up with primary care doctor. All questions/concerns addressed prior to discharge. - Vital Signs Vital signs: Temp Pulse Resp BP Pulse Ox 98.6 F 96 18 134/92 H 98 09/30/19 03:32 09/30/19 03:32 09/30/19 03:32 09/30/19 03:37 09/30/19 03:32 Discharge - Discharge Clinical Impression: Strep sore throat Condition: Stable Disposition: HOME, SELF-CARE Instructions: Penicillin V K ([facility]), Sore Throat ([facility]), Strep Throat ([facility]) Additional Instructions: Your strep test was positive. Please take antibiotics as prescribed and finish all doses of the antibiotic even if you feel better. For sore throat you can use a spoonful of honey, Chloraseptic spray [id number], gargle salt water. Please follow-up with your primary care doctor or clinic listed in 3 to 5 days. Return to ER for any worsening symptoms, including fever, inability to swallow, inability to open mouth, muffled voice, shortness of breath, or any other symptoms that are concerning to you. Prescriptions: Benzonatate [Tessalon Perle 100 mg Capsule] 100 mg PO Q8HP PRN #40 cap PRN Reason: Cough Penicillin V Potassium [Penicillin Vk 500 mg Tablet] 500 mg PO BID #20 tablet Forms: Parent Work Note Referrals: RAND LLAMAS MD [Primary Care Provider] - Follow up in 3-5 days
[2019-09-30 05:30] VITALS: BP 136/86
== END 2019-09-30 05:30 | disposition home or self-care (01) ==
LOC: ER 03:25
DX: J02.0 Streptococcal pharyngitis (principal); I10 Essential (primary) hypertension; E11.9 Type 2 diabetes mellitus without complications; Z90.49 Acquired absence of other specified parts of digestive tract; Z98.51 Tubal ligation status; Z85.07 Personal history of malignant neoplasm of pancreas
CPT/HCPCS: 87880; 99283

== ENCOUNTER 2019-12-09 21:44 | Emergency (ER) | payer BC, MEDICAID ==
[2019-12-09] MEDS ORDERED: HYDROCODONE/ACETAMINOPHEN 5-325 MG TABLET PO ONE (22:19)
--- NOTE | 2019-12-09 22:19 | ER Document Report ---
HPI - HPI Patient complains to provider of: Left foot pain Time Seen by Provider: 12/09/19 22:11 Notes: 49-year-old female to emergency department with complaints of progressively worsening left foot pain for the past week. She states that she is actually had difficulty with this foot for the past year. This started after she fell at work. She has been seeing Dr. Wilkerson, podiatry. She states that she was recently fitted for an orthotic but her pain has just gotten significantly worse. She states that her foot is not swollen and she has pain anytime she applies pressure. Dr. Wilkerson has had her on meloxicam which typically helps her pain and controls it but it has not been helping her pain. She denies any new injuries. She denies any fevers or chills. She denies any redness streaking up the leg. - CONSTITUTIONAL Constitutional: DENIES: Fever, Chills - EENT EENT: DENIES: Sore Throat, Ear Pain - NEURO Neurology: DENIES: Headache - CARDIOVASCULAR Cardiovascular: DENIES: Chest pain - RESPIRATORY Respiratory: DENIES: Trouble Breathing, Coughing - GASTROINTESTINAL Gastrointestinal: DENIES: Abdominal Pain, Nausea, Patient vomiting, Diarrhea - MUSCULOSKELETAL Musculoskeletal: REPORTS: Extremity pain Notes: Left foot pain. - DERM Skin Color: Normal Skin Problems: None Past Medical History - General Information source: Patient - Social History Smoking Status: Never Smoker Frequency of alcohol use: None Drug Abuse: None Family History: Reviewed & Not Pertinent, DM - Past Medical History Cardiac Medical History: Reports: Hx Hypertension Pulmonary Medical History: Denies: Hx Tuberculosis Neurological Medical History: Reports: Hx Migraine, Hx Seizures Endocrine Medical History: Reports: Hx Diabetes Mellitus Type 2 Renal/ Medical History: Denies: Hx Peritoneal Dialysis Malignancy Medical History: Reports: Hx Pancreatic Cancer Musculoskeletal Medical History: Reports Hx Arthritis, Reports Hx Musculoskeletal Deformity - Right knee Psychiatric Medical History: Reports: Hx Anxiety, Hx Depression, Hx Schizophrenia Past Surgical History: Reports: Hx Cholecystectomy, Hx Tubal Ligation - Immunizations Hx Diphtheria, Pertussis, Tetanus Vaccination: Yes Hx Pneumococcal Vaccination: 10/19/00 Vertical Provider Document - CONSTITUTIONAL Agree With Documented VS: Yes Exam Limitations: No Limitations General Appearance: WD/WN, No Apparent Distress - INFECTION CONTROL TRAVEL OUTSIDE OF THE [place] IN LAST 30 DAYS: No - HEENT HEENT: Atraumatic, PERRLA - NECK Neck: Normal Inspection, Supple - RESPIRATORY Respiratory: Breath Sounds Normal. negative: Rales, Rhonchi, Wheezing - CARDIOVASCULAR Cardiovascular: Regular Rate, Regular Rhythm, No Murmur - GI/ABDOMEN Gastrointestinal: Abdomen Soft, Abdomen Non-Tender, No Organomegaly - BACK Back: Normal Inspection - MUSCULOSKELETAL/EXTREMETIES Notes: There is tenderness to palpation over the left foot along the arch. It is noted that patient has very flat feet. To the medial aspect of the arch in the midfoot there is noted edema but no erythema or warmth. Patient is very tender here. She is nontender to palpation over her left ankle, left knee, left hip. She has increased pain with plantar flexion. Strength is preserved 5 out of 5 in dorsiflexion and plantar flexion extension resistance. DP pulses are intact and equal. - NEURO Level of Consciousness: Awake, Alert, Appropriate Motor/Sensory: No Motor Deficit, No Sensory Deficit, No Pronator Drift Course - Re-evaluation Re-evalutation: Impression: Left foot pain this is acute on chronic. Will splint the foot in a postop shoe and Tristan wrap and have her come off of it to rest it. We will give a small amount of Chicora to go home with. Patient states that her pain is much better controlled since having one here in the emergency department. We will have her follow-up with Dr. Wilkerson for further evaluation and management. - Vital Signs Vital signs: Temp Pulse Resp BP Pulse Ox 98.1 F 62 20 181/103 H 100 12/09/19 21:52 12/09/19 21:52 12/09/19 21:52 12/09/19 21:52 12/09/19 21:52 Procedures - Immobilization Left Foot Pre-Proc Neuro Vasc Exam: Normal Immobilizer type: Tristan wrap, Post-op shoe Performed by: PCT Post-Proc Neuro Vasc Exam: Normal Alignment checked and good: Yes Discharge - Discharge Clinical Impression: Swelling of left foot, Left foot pain Condition: Stable Disposition: HOME, SELF-CARE Additional Instructions: Stay off the foot. Use splint as directed daily. Follow-up with Dr. Wilkerson without fail. No work until you see Dr. Wilkerson. Prescriptions: Hydrocodone/Acetaminophen [[place] 5-325 mg Tablet] 1 tab PO Q8H #9 tablet Forms: Special Work Note Referrals: RAND LLAMAS MD [Primary Care Provider] - Follow up in 3-5 days MIKI WILKERSON DPM [NO LOCAL MD] - Follow up in 3-5 days
--- NOTE | 2019-12-09 23:08 | RADIOLOGY REPORT (SQ) ---
EXAM DESCRIPTION: Radiographs of the left foot CLINICAL HISTORY: 49 years Female, foot pain, foot swelling COMPARISON: Three views of the left foot July 14, 2018 FINDINGS: flattening of the arch is again identified. There is minimal spurring of the calcaneus at the insertion of the plantar fascia and the Achilles tendon. Bunion deformity at the first MTP joint is identified. No fracture. No erosions or periostitis. Soft tissues are prominent but similar to the previous exam. Overall the appearance is similar to the previous exam. IMPRESSION: Mild degenerative change. No fracture. Overall the appearance is stable.
[2019-12-10 02:59] VITALS: BP 168/94
== END 2019-12-10 00:20 | disposition home or self-care (01) ==
LOC: ER 21:44
DX: M79.672 Pain in left foot (principal); W19.XXXA Unspecified fall, initial encounter; Y99.0 Civilian activity done for income or pay; G89.29 Other chronic pain; M21.42 Flat foot [pes planus] (acquired), left foot; M21.41 Flat foot [pes planus] (acquired), right foot; M79.89 Other specified soft tissue disorders; I10 Essential (primary) hypertension; E11.9 Type 2 diabetes mellitus without complications; Z79.1 Long term (current) use of non-steroidal anti-inflammatories (NSAID); Z85.07 Personal history of malignant neoplasm of pancreas
CPT/HCPCS: 99283

== ENCOUNTER 2020-02-21 20:42 | Emergency (ER) | payer BC ==
--- NOTE | 2020-02-21 21:08 | ER Document Report ---
ED Medical Screen (RME) - General Chief Complaint: Numbness Stated Complaint: NUMBNESS IN HAND Time Seen by Provider: 02/21/20 21:04 Primary Care Provider: RAND LLAMAS MD [Primary Care Provider] - Follow up as needed Mode of Arrival: Ambulatory Information source: Patient Notes: 49-year-old female with no past medical history presents emergency department wi complaints of right hand numbness for the past 3 days. She also reports she has had 2 diarrhea stools in the last couple hours. Denies fever vomiting. Patient reports she has been exposed to the COVID virus by a coworker approximately 4 weeks ago. Patient works at the [employer]. She denies chest pain shortness of breath. She reports complaints of only the right hand numbness and the diarrhea. Patient has good apartment leasing agent. Radial pulse +3, cap refill less than 3 seconds. Denies history of TIA or stroke. Patient denies weakness. Patient is right-handed. Patient works at the [employer] in [employer] pots [employer]. Denies history of high blood pressure. BP today 170/109. Answers all questions appropriately. I have greeted and performed a rapid initial assessment of this patient. A c omprehensive ED assessment and evaluation of the patient, analysis of test results and completion of the medical decision making process will be conducted by additional ED providers. TRAVEL OUTSIDE OF THE [place] IN LAST 30 DAYS: No - Related Data Allergies/Adverse Reactions: venom-wasp [Wasp Venom] Allergy (Severe, Verified 08/12/19 21:05) SWELLING Bees Allergy (Severe, Uncoded 08/12/19 21:05) swelling Past Medical History - Past Medical History Cardiac Medical History: Reports: Hx Hypertension Pulmonary Medical History: Denies: Hx Tuberculosis Neurological Medical History: Reports: Hx Migraine, Hx Seizures Endocrine Medical History: Reports: Hx Diabetes Mellitus Type 2 Renal/ Medical History: Denies: Hx Peritoneal Dialysis Malignancy Medical History: Reports: Hx Pancreatic Cancer Musculoskeltal Medical History: Reports Hx Arthritis, Reports Hx Musculoskeletal Deformity - Right knee Psychiatric Medical History: Reports: Hx Anxiety, Hx Depression, Hx Schizophrenia Past Surgical History: Reports: Hx Cholecystectomy, Hx Tubal Ligation - Immunizations Hx Diphtheria, Pertussis, Tetanus Vaccination: Yes Physical Exam - Vital signs Vitals: Temp Pulse Resp BP Pulse Ox 98.7 F 76 16 170/109 H 98 02/21/20 20:46 02/21/20 20:46 02/21/20 20:46 02/21/20 20:46 02/21/20 20:46 Course - Vital Signs Vital signs: Temp Pulse Resp BP Pulse Ox 98.7 F 76 16 170/109 H 98 02/21/20 21:04 02/21/20 20:46 02/21/20 20:46 02/21/20 20:46 02/21/20 20:46 Doctor's Discharge - Discharge Referrals: RAND LLAMAS MD [Primary Care Provider] - Follow up as needed
--- NOTE | 2020-02-21 23:21 | ER Document Report ---
ED General - General Chief Complaint: Numbness Stated Complaint: NUMBNESS IN HAND Time Seen by Provider: 02/21/20 21:04 Primary Care Provider: RAND LLAMAS MD [Primary Care Provider] - Follow up as needed Mode of Arrival: Ambulatory Notes: 49-year-old woman presents to the emergency department with a complaint of numbness and tingling in the fingers on her right hand. 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 However she is a diabetic and is concerned that the symptoms have been ongoing for the past 3 days. She denies weakness in the arm or numbness in the left side. She denies any other signs or symptoms of neurologic involvement. 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 She believes that the activity is contributing to the numbness and tingling in her fingertips. TRAVEL OUTSIDE OF THE [place] IN LAST 30 DAYS: No - Related Data Allergies/Adverse Reactions: venom-wasp [Wasp Venom] Allergy (Severe, Verified 08/12/19 21:05) SWELLING Bees Allergy (Severe, Uncoded 08/12/19 21:05) swelling Past Medical History - General Information source: Patient - Social History Smoking Status: Never Smoker Chew tobacco use (# tins/day): No Frequency of alcohol use: None Family History: Reviewed & Not Pertinent, DM Patient has homicidal ideation: No - Past Medical History Cardiac Medical History: Reports: Hx Hypertension Pulmonary Medical History: Denies: Hx Tuberculosis Neurological Medical History: Reports: Hx Migraine, Hx Seizures Endocrine Medical History: Reports: Hx Diabetes Mellitus Type 2 Renal/ Medical History: Denies: Hx Peritoneal Dialysis Malignancy Medical History: Reports: Hx Pancreatic Cancer Musculoskeletal Medical History: Reports Hx Arthritis, Reports Hx Musculoskeletal Deformity - Right knee Psychiatric Medical History: Reports: Hx Anxiety, Hx Depression, Hx Schizophrenia Past Surgical History: Reports: Hx Cholecystectomy, Hx Tubal Ligation - Immunizations Hx Diphtheria, Pertussis, Tetanus Vaccination: Yes Hx Pneumococcal Vaccination: 10/19/00 Review of Systems - Review of Systems Notes: Constitutional: Negative for fever. HENT: Negative for sore throat. Eyes: Negative for visual changes. Cardiovascular: Negative for chest pain. Respiratory: Negative for shortness of breath. Gastrointestinal: Negative for abdominal pain, vomiting or diarrhea. Genitourinary: Negative for dysuria. Musculoskeletal: Negative for back pain. Skin: Negative for rash. Neurological: Numbness/Tingling in fingertips 10 point ROS negative except as marked above and in HPI. Physical Exam - Vital signs Vitals: Temp Pulse Resp BP Pulse Ox 98.7 F 76 16 170/109 H 98 02/21/20 20:46 02/21/20 20:46 02/21/20 20:46 02/21/20 20:46 02/21/20 20:46 - Notes Notes: PHYSICAL EXAMINATION: Physical Exam: General: Well-nourished well-developed 49-year-old woman in no acute distress HEENT: NC/AT, pupils equal round and reactive to light, MM moist,nares clear, oropharynx clear, airway patent Neck: supple, no adenopathy, no masses. Good range of motion Lungs: clear, no wheezing, no rales no rhonchi CVS: Regular rate and rhythm no murmur gallop or rub Abdomen: Soft, active, nontender, no masses, no hepatosplenomegaly Ext: Normal neurologic exam with good precipitator and good strength in both hands. The upper extremities equal bilaterally with flexion extension and supination and pronation. Tinel's negative. Neuro: Alert and responsive, moving all 4 extremities on command, cranial nerves intact, no focal findings Skin: Intact no open lesions, no rash PSYCH: Normal mood, normal affect. Course - Re-evaluation Re-evalutation: 02/22/20 01:22 Patient presents with numbness and tingling in the fingertips of the fingers of the right hand. 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 She is a diabetic, has no other neurologic symptoms. She has been given an anti-inflammatory medication and encouraged to use massage to the fingertips pre-and post work. She will follow-up with her primary care doctor as needed. - Vital Signs Vital signs: Temp Pulse Resp BP Pulse Ox 98.0 F 68 16 152/71 H 97 02/21/20 22:36 02/21/20 22:36 02/21/20 22:36 02/21/20 22:36 02/21/20 22:36 - Laboratory Result Diagrams: 02/21/20 23:30 02/21/20 23:30 Laboratory results interpreted by me: 02/21/20 02/21/20 02/21/20 21:40 23:30 23:30 WBC 3.4 L Kidder % (Auto) 17.7 H Absolute Neuts (auto) 1.2 L Seg Neutrophils % 35.4 L Sodium 136.3 L Anion Gap 4 L Glucose 121 H Urine Urobilinogen 2.0 H Leukocyte Esterase Rfl TRACE H Urine Ascorbic Acid 40 H I have reviewed laboratory data and used this information for the treatment decisions regarding the patient. Discharge - Discharge Clinical Impression: Neuropathy of finger of right hand, Overuse syndrome Condition: Good Disposition: HOME, SELF-CARE Additional Instructions: You are diagnosed with neuropathy of the fingertips from what appears to be an overuse type syndrome. Use massage to the fingertips before and after work, use an anti-inflammatory medication, a prescription is given tonight for Naprosyn. Please follow-up with your primary care doctor as needed if your symptoms persist. HOME CARE INSTRUCTIONS & INFORMATION: Thank you for choosing us for your medical needs. We hope you're satisfied with the care you received. After you leave, you must properly care for your problem and, at the same time, observe its progress. Any condition can change. Some illnesses can change rapidly over hours or days. If your condition worsens, return to the Emergency Department or see your physician promptly. ABOUT YOUR X-RAYS AND EKG'S: If you had an EKG or X-rays taken, they have been read by the Emergency Physician. The X-rays and EKG's will also be read by a Radiologist or Bus Assistant within 24 hours. If discrepancies are noted, you will be notified by telephone. Please be certain the ED has a correct telephone number & address where you can be reached. Also, realize that some fractures or abnormalities do not show up on initial X-rays. If your symptoms continue, see your physician. ABOUT YOUR LABORATORY TEST: If you had laboratory tests, the results have been reviewed by the Emergency Physician. Some test results (for example cultures) may not be available for several days. You will be contacted if any test result shows you need additional treatment. Please be certain the ED has a correct telephone number and address where you can be reached. ABOUT YOUR MEDICATIONS: You will receive instructions on how to take your medicine on the prescription label you receive. Additional information may be provided by the Pharmacy. If you have questions afterwards, call the ED for clarification or further instructions. Some prescribed medications may cause drowsiness. Do not perform tasks such as driving a car or operating machinery without consulting your Pharmacist. If you feel you need a refill of pain medication, your condition will need re-evaluation. Please do not call for a refill of any medication. ABOUT YOUR SIGNATURE: Signature of this document acknowledges to followin. Understanding that you received emergency treatment and that you may be released before al medical problems are known or treated. Please be certain the ED has a correct phone number & address where you can be reached. 2. Acknowledgement that you will arrange for follow-up care as recommended. 3. Authorization for the Emergency Physician to provide information to your follow-up Physician in order to maximize your care. AT ANY TIME, IF YOUR SYMPTOMS CHANGE SIGNIFICANTLY OR WORSEN OR YOU DEVELOP NEW SYMPTOMS, RETURN TO THE EMERGENCY DEPARTMENT IMMEDIATELY FOR RE-EVALUATION. OUR GOAL IS TO PROVIDE EXCELLENT MEDICAL CARE! WE HOPE THAT WE HAVE MET YOUR EXPECTATIONS DURING YOUR EMERGENCY DEPARTMENT VISIT AND THAT YOU FEEL YOU HAVE RECEIVED EXCELLENT CARE! Prescriptions: Naproxen [Naprosyn] 500 mg PO BID #20 tablet Referrals: RAND LLAMAS MD [Primary Care Provider] - Follow up as needed
[2020-02-21 23:32] LABS: APPEARANCE,URINE TURBID; BILIRUBIN,URINE NEGATIVE (NEGATIVE); COLOR,URINE YELLOW; GLUCOSE, URINE NEGATIVE (NEGATIVE); KETONES,URINE NEGATIVE (NEGATIVE); PROTEIN,URINE NEGATIVE (NEGATIVE); URINE SPECIFIC GRAVITY 1.032
[2020-02-21 23:39] LABS: ABSOLUTE EOSINOPHILS # (AUTO) 0.1 10^3/uL (0.0-0.6); ABSOLUTE LYMPHOCYTES (AUTO) 1.5 10^3/uL (0.5-4.7); ABSOLUTE MONOCYTES (AUTO) 0.6 10^3/uL (0.1-1.4); ABSOLUTE NEUT (AUTO) 1.2 10^3/uL (1.7-8.2); BASOPHILS % (AUTO) 0.9 % (0-2); EOSINOPHILS % (AUTO) 3.2 % (0-6); HEMOGLOBIN 12.3 g/dL (12.0-15.5); LYMPHOCYTES % (AUTO) 42.8 % (13-45); MEAN CORPUSCULAR HEMOGLOBIN 29.6 pg (27.0-33.4); MEAN CORPUSCULAR HGB CONC 34.2 g/dL (32.0-36.0); MEAN CORPUSCULAR VOLUME 87 fl (80-97); MONOCYTES % (AUTO) 17.7 % (3-13); PLATELET COUNT 193 10^3/uL (150-450); RED BLOOD COUNT 4.15 10^6/uL (3.72-5.28); RED CELL DISTRIBUTION WIDTH 13.6 % (11.5-14.0); SEGMENTED NEUTROPHILS % (AUTO) 35.4 % (42-78); TOTAL CELLS COUNTED % (AUTO) 100 %; WHITE BLOOD COUNT 3.4 10^3/uL (4.0-10.5)
[2020-02-22] LABS: ALBUMIN 3.6 g/dL (3.5-5.0); ALKALINE PHOSPHATASE 64 U/L (38-126); ASPARTATE AMINO TRANSFERASE 17 U/L (14-36); BILIRUBIN,TOTAL 0.3 mg/dL (0.2-1.3); BLOOD UREA NITROGEN 14 mg/dL (7-20); CALCIUM 9.1 mg/dL (8.4-10.2); CARBON DIOXIDE 28 mmol/L (22-30); CHLORIDE 104 mmol/L (98-107); GLUCOSE 121 mg/dL (75-110); TOTAL PROTEIN 6.4 g/dL (6.3-8.2)
[2020-02-22 00:06] LABS: ANION GAP 4 (5-19)
[2020-02-22 01:32] VITALS: BP 151/71
== END 2020-02-22 01:39 | disposition home or self-care (01) ==
LOC: ER 20:42
DX: E11.40 Type 2 diabetes mellitus with diabetic neuropathy, unspecified (principal); R20.0 Anesthesia of skin; R20.2 Paresthesia of skin; I10 Essential (primary) hypertension; Z91.038 Other insect allergy status; Z91.030 Bee allergy status; Z85.07 Personal history of malignant neoplasm of pancreas
CPT/HCPCS: 36415; 80053; 81001; 83735; 85025; 99283